=== PATIENT | female | born 1990 | race Two or more races ===

== ENCOUNTER 2016-11-19 15:01 | Inpatient (IN) | payer SELFPAY ==
[~2016-11-19] VITALS: Ht 160 cm; Wt 104.7 kg
--- NOTE | ~2016-11-19 | HP ---
PATIENT'S NAME: [facility] AGE: 26 Y [address] ROOM: [place] [address] [place] [facility] [place] DATE: 11/19/2016 History & Physical DISCHARGE DATE: FAMILY PHYSICIAN: PHYSICIAN, NO ATTENDING PHYSICIAN: GUILLERMO PADGETT V DATE OF SERVICE: CHIEF COMPLAINT: Abdominal pain. HISTORY OF PRESENT ILLNESS: The patient is a previously healthy 26-year-old female. She presented to the ER with approximately 3 days of constant mid-epigastric abdominal pain with radiation to her back. Apparently, this is not improved or escalated by any oral intake or activity. She denies any nausea, vomiting, chest pain, shortness of breath, diarrhea, or palpitations. In the ER, the patient had a right upper quadrant ultrasound and that demonstrated a thickened gallbladder wall with clear cholecystitis as well as evidence of a pericardial effusion. Subsequently, an echocardiogram has been done and this shows moderate-sized pericardial effusion, mild LVH, but no tamponade. The patient has been seen by Dr. Lea of General Surgery. He requested a hospitalist admission with antibiotic and preoperative optimization. REVIEW OF SYSTEMS: All systems have been reviewed and negative aside from the pertinent positives mentioned above. The patient was evaluated for some chest pain in [facility] several days ago and that was apparently unremarkable. PAST MEDICAL HISTORY: The patient denies. PAST SURGICAL HISTORY: The patient denies. FAMILY HISTORY: The patient denies. SOCIAL HISTORY: PATIENT'S NAME: [facility] AGE: 26 Y [address] ROOM: [place] [address] LOCATION: [facility] [place] DATE: 11/19/2016 History & Physical DISCHARGE DATE: FAMILY PHYSICIAN: PHYSICIAN, NO ATTENDING PHYSICIAN: GUILLERMO PADGETT V She does smoke approximately 1/2 a pack of cigarettes a day, but aside from that, she denies. PHYSICAL EXAMINATION: VITAL SIGNS: Blood pressure is 129/73, temperature 97, pulse is 94, respirations are 16, and saturations 97% on room air. GENERAL: Appears as a morbidly obese, young female, in no acute distress. NEUROLOGICAL: Nonfocal. EYES: Show pupils are equal and reactive to light. LYMPHATIC: Shows no cervical lymphadenopathy. ENDOCRINE: Shows no thyromegaly. LUNGS: Clear to auscultation in all campos. HEART: Shows regular rate and rhythm without appreciable murmurs, gallops, or rubs. ABDOMEN: Soft. Positive Walden sign. : Reveals no costovertebral angle tenderness. VASCULAR: Shows 2+ pedal pulses. MUSCULOSKELETAL: Unremarkable. PSYCHIATRIC: Reveals slightly anxious female with preserved cognition and affect. LABORATORY DATA: Studies performed so far are an echocardiogram and an ultrasound as per [facility]. A complete metabolic profile is significant for AST of 58, ALT of 96. Unremarkable urinalysis, unremarkable amylase lipase, and an unremarkable CBC. ASSESSMENT AND PLAN: This is a 26-year-old female, who will be admitted with: 1. Acute cholecystitis: The patient has been seen by General Surgery. We will put her on broad-spectrum antibiotics with Zosyn. Additional management as per General Surgery recommendations. 2. Pericardial effusion: The underlying etiology of this is unclear. I have discussed the case with Cardiology and the patient will be formally seen tomorrow. At this point, we will put her on fluids and check an EKG as well as TSH and look for other underlying possibilities for her pericardial effusion. 3. Morbid obesity noted. 4. Tobaccoism: I will provide her with tobacco cessation counseling. 5. Additional management will depend on clinical course. Time dedicated to this patient's encounter is 35 minutes. PATIENT'S NAME: RIRI ESCOTO [facility] AGE: 26 Y [address] ROOM: [address] [address] LOC[place]: [facility] [place] DATE: 11/19/2016 History & Physical DISCHARGE DATE: FAMILY PHYSICIAN: PHYSICIAN, NO ATTENDING PHYSICIAN: GUILLERMO PADGETT MD AVK/lalo /[id number] D: [id number] T: [id number] HISTORY & PHYSICAL
--- NOTE | ~2016-11-19 | ECHO ---
Transthoracic Echocardiography Report (TTE) Demographics Patient Name RIRI ESCOTO Date of Study 11/19/2016 Patient Number [id number] Visit Number [id number] Date of 1990 Room Number G3207 Accession Number [id number] Gender Female Age 26 year(s) Referring Floyd Stokes Synchronizer Itzel Randall RDCS, Physician HTOM RVT Physician Interpreting Shoaib Boston [employer]ishing Crew Member Physician MD Supervising Ordering Physician Shoaib Boston MD/MLP Nurse Stress Application Release Manager Conclusions Contractility Score Summary Normal Left Ventricular contractility was noted. Summary Normal LV/RV size and systolic function. The estimated left ventricular ejection fraction is 60-65%. Mild concentric left ventricular hypertrophy. Diastolic assessment reveals normal relaxation. The left atrium is mildly dilated by LA volume index measurement. Moderate size circumferential pericardial effusion. No significant valvular abnormalities. No obvious echocardiographic evidence of elevated intrapericardial pressuers. Procedure Type of Study TTE procedure:2D Echocardiogram, 2D Echo - Outreach. Procedure Date Date: 11/19/2016 Start: 05:20 PM Study Location: ER Technical Quality: Good visualization Indications:Evaluate for pericardial effusion. Additional Indications:pre op gallbladder Appropriate Use Criteria: 9 Patient Status: Routine Rhythm: Sinus tachycardia HR: 89 bpm M-Mode/2D Measurements LV Diastolic Dimension: 4.52 cm LV Systolic Dimension: 3.44 cm LV Septum Diastolic: 1.15 cm LV Septum Systolic: 3.04 cm LV PW Diastolic: 1.08 cm AO Root Dimension: 1.9 cm Cardiac Output: 4.1 l/min AV Cusp Separation: 2.5 cm RV Diastolic Dimension: 2.3 cm LA Dimension: 4.2 cm Post Pericard Effusion: 0.8 cm LA volume: 39 ml IVC Inspiration: 1.6 cm LVOT: 2.1 cm RV Base: 3.33 cm LVOT VTI: 13.3 cm RV Mid: 2.8 cm LV Stroke volume: 46.04 ml RV Length: 6.33 cm TAPSE: 3.09 cm TDI-S': 20 cm/s Doppler Measurements AV Peak Velocity: 1.28 m/s MV Peak E-Wave: 0.8 m/s AV Peak Gradient: 6.55 mmHg MV Peak A-Wave: 0.57 m/s AV Mean Gradient: 4 mmHg MV E/A Ratio: 1.4 LVOT Peak Velocity: 0.81 m/s MV P1/2t: 33 msec MV Deceleration Time: 29 msec TR Gradient:13.4 mmHg PV Peak Velocity: 0.87 m/s Estimated RAP:8 mmHg PV Peak Gradient: 3.05 mmHg Estimated RVSP: 21 mmHg Estimated PASP: 21.4 mmHg E' Lateral Velocity: 0.07 m/s A' Lateral Velocity: 0.14 m/s MV E/E' Ratio: 12 Findings Left Ventricle The estimated left ventricular ejection fraction is 60-65%. Mild concentric left ventricular hypertrophy. Diastolic assessment reveals normal relaxation. Right Ventricle Grossly normal right ventricle structure and function. Left Atrium The left atrium is mildly dilated by LA volume index measurement. Right Atrium Grossly normal right atrial size. Dilated IVC with poor inspiratory collapse consistent with elevated RA pressure.2.34 Mitral Valve Trivial mitral regurgitation by color Doppler. Aortic Valve Grossly normal aortic valve structure and function. Tricuspid Valve The tricuspid valve is not well visualized. Trivial tricuspid regurgitation by color Doppler. Pulmonic Valve Trivial pulmonic valve regurgitation by color Doppler. Pericardial Effusion Moderate size circumferential pericardial effusion. No obvious echocardiographic evidence of elevated intrapericardial pressuers. Miscellaneous Visualized portions of the aortic root and ascending aorta appear normal in size. Pleural Effusion No evidence of pleural effusion. Contractility Score LV regional wall motion:(0-Non visualized 1-Normal 2-Hypokinesis 3-Akinesis 4-Dyskinesis 5-Aneurysm) Signature dtt: JOSE MENEZES dtd: 11/19/16 9955 Physician Self Edit
--- NOTE | ~2016-11-19 | CON ---
[facility] 26 [facility] [address] ROOM: [place] [address] [place] [facility] [place] DATE: 11/19/2016 Consultation DISCHARGE DATE: FAMILY PHYSICIAN: PHYSICIAN, NO ATTENDING PHYSICIAN: GUILLERMO PADGETT V DATE OF CONSULTATION: 11/20/2016 REFERRING PHYSICIAN: LUDY MENEZES MD REASON FOR CARDIOLOGY CONSULT: Preoperative cardiac evaluation. HISTORY OF PRESENT ILLNESS: This is a 26-year-old female, admitted with acute cholecystitis from the emergency department. During her abdominal ultrasound, she was also found incidentally to have a pericardial effusion and this consult was requested. The patient complains of right upper quadrant pain with radiation and sharpness into her back. She states the pain is worse with a deep breath. She also has complaints of nausea and constipation as well as diaphoresis. She states she had similar pain about 3 weeks ago and presented to the [facility] where they stated a cardiac workup was "normal." She has no noted family history of heart disease. Her health history includes 3 normal vaginal births without complication and no other health history noted. At the time of this consult, she is resting comfortably in bed. She does continue to have abdominal pain and tenderness with palpation, especially to the right upper quadrant. She also states her pain increases with deep breath. PAST MEDICAL HISTORY: As stated in the HPI. FAMILY HISTORY: There is notation of cancer as well as diabetes in her aunts and uncles. SOCIAL HISTORY: The patient is a current daily cigarette smoker. She smokes a half a pack per day and has done so for the last 7 years. She denies alcohol use. She does admit to marijuana use previously and states she has not used for over 6 months. CURRENT MEDICATIONS: 1. Protonix 40 mg IV daily. 2. Zosyn 3.375 g IV every 8 hours. 3. Florastor 250 mg p.o. twice daily. 4. NicoDerm 21 mg transdermally daily. [facility] 26 Y [address] ROOM: [address] [address] [place]: [facility] [place]MIT DATE: 11/19/2016 Consultation DISCHARGE DATE: FAMILY PHYSICIAN: PHYSICIAN, NO ATTENDING PHYSICIAN: GUILLERMO PADGETT V MEDICATION ALLERGIES: No known medication allergies. REVIEW OF SYSTEMS: Pertinent positive review of systems listed in the HPI. All other review of systems evaluated and negative. DIAGNOSTICS: CMS evaluation shows sodium of 140, potassium 3.7, BUN of 19, creatinine 0.8, and glucose of 96. She has a TSH of 3.83. Echocardiogram shows an estimated left ventricular ejection fraction of 60 to 65%. She had a moderate-sized circumferential pericardial effusion. There are no significant valvular abnormalities and no obvious echocardiographic evidence of elevated intrapericardial pressures. PHYSICAL EXAMINATION: VITAL SIGNS: Temperature 98.1, pulse 95, respirations 16, blood pressure 115/71, and O2 saturation 98% on room air. The patient weighs 97.4 kg. SKIN: Normal for race and warm and dry. HEENT: Eyes: Sclerae clear. No xanthelasmas. ENT: Oral mucosa is pink and moist. No jugular venous distention or carotid bruits. CHEST: Respirations are even and unlabored. LUNGS: Clear to auscultation. HEART: Regular rate and rhythm. Normal S1, S2. No murmurs, rubs, or gallops. ABDOMEN: Soft, nontender. MUSCULOSKELETAL: Gait is normal. EXTREMITIES: Peripheral pulses palpable. No clubbing, cyanosis, or edema. PSYCH: Alert and oriented. Mood and affect are appropriate. IMPRESSION AND PLAN: Per Dr. Ludy Menezes: 1. Preoperative cardiac evaluation. 2. Moderate pericardial effusion. Some echo e/o increased intrapericardial pressures. However, clinically she is not in tamponade. BP and HR is stable, no pulsus paradoxus. 3. Acute cholecystitis. 4. Atypical chest pain which is sharp and worsened with deep breath. Overall, she has no signs and symptoms suggestive of tamponade. Questionably secondary to recent respiratory infection, possibly viral. We will repeat an echocardiogram in 1 month to re-evaluate. Once again, she has no complaints of signs and symptoms suggestive of tamponade including having a stable heart rate and blood pressure. She is in need of urgent surgery for her acute cholecystitis, and the patient is at low risk for perioperative cardiac events. There is no indication for pericardiocentesis at this time. She will PATIENT'S NAME: RIRI ESCOTO [facility] AGE: 26 Y [address] ROOM: [address] [place] [id number] LOC[place]: [facility] [place]MIT DATE: 11/19/2016 Consultation DISCHARGE DATE: FAMILY PHYSICIAN: PHYSICIAN, FELICIANO ATTENDING PHYSICIAN: GUILLERMO PADGETT V need monitoring of her hemodynamic status during surgery and attempts to avoid hypotension or arrhythmias. We will continue to monitor, evaluate, and treat as appropriate. Thank you for this consult. Thank you for allowing [facility] to interact in the care of this patient. VAL BARROS APRN FOR MD SUPA KUHN/lalo /[id number] d: 11/20/16 2233 t: 11/24/16 1407, CONSULTATION REPORT
--- NOTE | ~2016-11-19 | ECHO ---
Transthoracic Echocardiography Report (TTE) Demographics Patient Name RIRI ESCOTO Date of Study 11/23/2016 Patient Number [id number] Visit Number [id number] Date of 1990 Room Number G3207 [facility] [id number] Gender Female Number Age 26 year(s) Referring Joni Stokes DO Film And Video Editor Ar Mckeon Physician Yaneli Banks MD Physician Interpreting Jessee Galicia Ticket Writer Physician Shoaib Boston MD Supervising Ordering Joni Stokes DO, MD/MLP Physician Nurse Stress Sorting Grapple Operator Conclusions Contractility Score Summary Normal Left Ventricular contractility was noted. Summary The estimated left ventricular ejection fraction is 55%. The left atrium is mildly dilated by LA volume index measurement. Moderate global pericardial effusion. There is echocardiographic suspicion of increased intrapericardial pressure based on late diastolic RA collapse and respirophasic variation in MV inflow pattern. No significant change in pericardial effusion compared to prior echocardiogram. BP and HR stable during echo interrogation. Clinical correlation recommended. Procedure Type of Study TTE procedure:2D Echocardiogram, M-Mode, Doppler , Color Doppler. Procedure Date Date: 11/23/2016 Start: 07:09 AM Study Location: Inpatient Portable Technical Quality: Excellent Indications:Pericardial effusion and Cardiac Tamponade. Appropriate Use Criteria: 9 Patient Status: Routine HR: 89 bpm M-Mode/2D Measurements LV Diastolic Dimension: 4.59 cm LV Systolic Dimension: 3.04 cm LV Septum Diastolic: 1.09 cm LV PW Diastolic: 0.99 cm AO Root Dimension: 2 cm Cardiac Output: 5.76 l/min LA Dimension: 3.7 cm EF Estimated: 55 % LVOT: 2.1 cm LVOT VTI: 18.7 cm RV Base: 2.26 cm LV Stroke volume: 64.74 ml RV Length: 6.62 cm TAPSE: 2.02 cm TDI-S': 15.2 cm/s Doppler Measurements AV Peak Velocity: 1.03 m/s MV Peak E-Wave: 0.92 m/s AV Peak Gradient: 4.24 mmHg AV Mean Gradient: 3 mmHg MV P1/2t: 52 msec LVOT Peak Velocity: 0.99 m/s TR Velocity:0.9 m/s PV Peak Velocity: 0.81 m/s TR Gradient:3.21 mmHg PV Peak Gradient: 2.6 mmHg Estimated RAP:8 mmHg Estimated PASP: 11.21 mmHg Estimated RVSP: 11 mmHg A' Septal Velocity: 0.12 m/s E' Septal Velocity: 0.1 m/s A' Lateral Velocity: 0.11 m/s E' Lateral Velocity: 0.09 m/s Findings Left Ventricle Normal left ventricle size and function. Right Ventricle Normal right ventricle structure and function. Left Atrium The left atrium is mildly dilated by LA volume index measurement. Right Atrium Normal right atrial size. Mitral Valve Trivial mitral regurgitation by color Doppler. Aortic Valve Normal aortic valve structure and function. Tricuspid Valve Trivial tricuspid regurgitation by color Doppler. Pulmonic Valve Normal pulmonic valve structure and function. Pericardial Effusion Large global pericardial effusion. There is echocardiographic suspicion of cardiac tamponade. Epicardial fat pad noted. Miscellaneous Visualized portions of the aortic root and ascending aorta appear normal in size. Suboptimal subcostal window to evaluate the IVC. Pleural Effusion No evidence of pleural effusion. Contractility Score LV regional wall motion:(0-Non visualized 1-Normal 2-Hypokinesis 3-Akinesis 4-Dyskinesis 5-Aneurysm) Signature dtt: JOSE MENEZES dtd: 11/23/16 0709 Physician Self Edit
--- NOTE | ~2016-11-19 | OR ---
PATIENT'S NAME: RIRI ESCOTO [facility] AGE: 26 Y [address] ROOM: [address] [address] LOCATION: [facility] [place] ADMIT DATE: 11/19/2016 OR/Procedure Report DISCHARGE DATE: FAMILY PHYSICIAN: PHYSICIAN, NO ATTENDING PHYSICIAN: GUILLERMO PADGETT V SURGEON: Moe Christian MD SEALING MACHINE OPERATOR: Link Weber PA-C. DATE OF PROCEDURE: 11/19/2016 PREOPERATIVE DIAGNOSIS: Acute cholecystitis. POSTOPERATIVE DIAGNOSIS: Acute cholecystitis. PROCEDURE: Laparoscopic cholecystectomy. FINDINGS: There was ascites in the abdomen. The gallbladder was edematous, consistent with cholecystitis. ESTIMATED BLOOD LOSS: 20 mL. COMPLICATIONS: None. INDICATIONS: The patient is a 26-year-old female who presented with abdominal pain right upper quadrant. She had cholelithiasis. Her signs and symptoms were consistent with cholecystitis. We discussed cholecystectomy with the patient the risks, benefits, and alternatives, and she elected to proceed. DESCRIPTION OF PROCEDURE: The patient is taken to the operating room, she was placed supine, she was given IV sedation, subsequently intubated. Her abdomen was prepped with ChloraPrep and sterilely draped. Local anesthetic was infiltrated just superior to the umbilicus. A transverse incision was created. The abdomen was elevated. Veress needle was inserted. Pneumoperitoneum was induced. Following this, 3 more trocars were then positioned, an 11-mm epigastric and two 5-mm right subcostal ports. Skin overlying peritoneal was first anesthetized prior to making these incisions. All three of these trocars were inserted under direct visualization. There was noted to be ascitic fluid in the abdomen, [id number], and the gallbladder was noted to be edematous. It was grasped and elevated over the dome of the liver. The infundibulum was grasped, retracted inferiorly and laterally to expose the Calot's triangle. The cystic duct and artery were dissected around circumferentially. A critical window was able be obtained. Both these structures were then doubly clipped and divided. The gallbladder was then removed from liver bed using electrocautery. It is placed in EndoCatch bag and brought out through the epigastric port site. The liver bed was then inspected. It appeared hemostatic. Clips appeared to be in good PATIENT'S NAME: RIRI ESCOTO [facility] AGE: 26 Y [address] ROOM: [place] [address] LOCATION: [facility] [place] ADMIT DATE: 11/19/2016 OR/Procedure Report DISCHARGE DATE: FAMILY PHYSICIAN: PHYSICIAN, NO ATTENDING PHYSICIAN: GUILLERMO PADGETT V position on both the cystic duct and artery. The area was irrigated. Fluid was removed. The pneumoperitoneum was released. The trocars were removed. The trocar sites appeared hemostatic. The fascia at the epigastric port site was approximated with 0 Vicryl suture followed by skin closure of all 4 port sites with 4-0 Monocryl suture. Steri-Strips and sterile dressings were placed. The patient was extubated and sent to recovery in good condition. MOE MD PRINCE SHAIKH/lalo /[id number] d: 11/20/16 2327 t: 12/02/16 1454, OPERATIVE SUMMARY
--- NOTE | ~2016-11-19 | CON ---
PATIENT'S NAME: [facility] AGE: 26 Y [address] ROOM: [place] [address] LOCATION: [facility] [place] ADMIT DATE: 11/19/2016 Consultation DISCHARGE DATE: FAMILY PHYSICIAN: PHYSICIAN, NO ATTENDING PHYSICIAN: GUILLERMO PADGETT V REFERRING PHYSICIAN: JOSE MENEZES MD SURGICAL CONSULTATION HISTORY OF PRESENT ILLNESS: This is a 26-year-old female who has had 3-day history of abdominal discomfort. She has had this in the past. No emesis. Seems to be worse with fatty foods. No history of peptic ulcer disease, pancreatitis, hepatitis or jaundice. She has noticed it is getting worse. No fevers or chills. She had in the emergency room, an ultrasound which showed cholelithiasis and a thickened wall. No fluid around her gallbladder. Her biliary tree looked satisfactory. She does have a moderate-sized pericardial fluid collection which is being evaluated by an echo. Her white count is 8000, hematocrit is 34.7. Her amylase and lipase are normal. Her liver function tests and electrolytes are pending at this time. Urinalysis was reviewed. MEDICATIONS: None. ALLERGIES: SEASONAL. PAST MEDICAL PROBLEMS: Seasonal allergies. OPERATIONS: None. REVIEW OF SYSTEMS: Remainder of review of systems; surgical, noncontributory. SOCIAL HISTORY: She does not smoke or drink. PHYSICAL EXAMINATION: VITAL SIGNS: Afebrile. Vital signs stable. HEENT: Nonicteric. GENERAL: She looks reasonably comfortable. CHEST: Clear. ABDOMEN: Soft. She does have tenderness in the right upper quadrant. Positive Walden sign. No peritoneal signs. No mass or organomegaly. No PATIENT'S NAME: [facility] AGE: 26 Y [address] ROOM: [place] [id number] LOCATION: [facility] [place] ADMIT DATE: 11/19/2016 Consultation DISCHARGE DATE: FAMILY PHYSICIAN: PHYSICIAN, NO ATTENDING PHYSICIAN: GUILLERMO PADGETT V hernias. EXTREMITIES: Perfused. IMPRESSION: Cholecystitis and cholelithiasis. PLAN: She is admitted by the hospitalist. We will treat her with IV antibiotics and p.o. intravenous hydration. Evaluation by echo for pericardial effusion, and evaluate her liver function tests. She will need a cholecystectomy. MD Carly REESE /[id number] d: 11/19/16 2312 t: 11/20/16 0602, CONSULTATION REPORT
--- NOTE | ~2016-11-19 | DS ---
PATIENT'S NAME: RIRI MCKEE [facility] AGE: 26 Y [address] ROOM: [place] [address] LOCATION: [facility] [place] ADMIT DATE: 11/19/2016 Discharge Summary DISCHARGE DATE: 11/23/2016 FAMILY PHYSICIAN: PHYSICIAN, NO ATTENDING PHYSICIAN: Richi Groves V PRINCIPAL DISCHARGE DIAGNOSIS: Pericardial effusion, moderate. SECONDARY DIAGNOSES: 1. Tamponade by echo, but not physical exam, on 11/20/2016. 2. Acute cholecystitis. 3. Cholelithiasis. 4. Cholesterolosis. 5. Bilateral pleural effusions, right greater than left. 6. Ascites, small. 7. Transaminitis AST of 47, ALT of 115. 8. Mild proteinuria. 9. Iron-deficiency anemia. CONSULTATIONS: 1. General Surgery, Dr. Christian. 2. Cardiology, Dr. Ludy Cramer. 3. Cardiothoracic Surgery, Dr. Jaison Quinones. PROCEDURES: 1. Laparoscopic cholecystectomy on November 20, 2016. 2. Echocardiogram, this was done on number of occasions, but I will give you the results from the study from 11/23/2016. There is normal left ventricular contractility. The ejection fraction is 55%. Left atrium is mildly dilated. There is moderate global pericardial effusion with echocardiographic suspicion of increased intrapericardial pressure only diastolic right atrial collapse and respirophasic variation in mitral valve inflow pattern. There is no significant change in pericardial effusion compared to the prior echo, which was done on the . BRIEF HISTORY: Ms. Mckee is a 26-year-old female who reports a 3- day history of right upper quadrant pain with radiation to the back also associated with some generalized abdominal pain. On evaluation in the emergency room, she had right upper quadrant ultrasound that showed thickened gallbladder wall and evidence of cholecystitis; and at that time, it was also noted to have a pericardial effusion. An echocardiogram was obtained and showed a moderate-sized pericardial effusion with mild left ventricular hypertrophy, but no tamponade. On further questioning about these symptoms, the patient reported she had had a mild and PATIENT'S NAME: RIRI MCKEE [facility] AGE: 26 Y [address] ROOM: [place] [address] LOCATION: [facility] [place] ADMIT DATE: 11/19/2016 Discharge Summary DISCHARGE DATE: 11/23/2016 FAMILY PHYSICIAN: PHYSICIAN, NO ATTENDING PHYSICIAN: Richi Groves V inconsequential cough in September; however, a week or so later, she developed this exertional dyspnea and this increased over couple of weeks and the week prior to admission she experienced increasing dyspnea, some dizziness, some fevers, chills, and shaking. The chest pain was constant over this time. Chest pain has varied from around 5 to 8, but she has had 2 episodes of extremely severe chest pain one on the evening after surgery on the and one the following day. Both these times, she required IV narcotics and IV Ativan to assist with the pain. Initially, on the evening of the , bedside limited echo did show tamponade features. Please see the echocardiogram interpreted by Dr. Paz for this. Initial evaluation for etiology of pericardial effusion with symptoms of pericarditis was unrevealing other than possibly related to viral infection in September, an YAN was negative, white count was elevated briefly after surgery, and her white count is now normal with white blood cells 6.4, hemoglobin 9.5, hematocrit 31.1, platelets 371, absolute neutrophil count is 4, neutrophil 61%, lymphs 29%, and monos 8%. Anticardiolipin IgG and IgM were normal. T3 within normal limits. Beta-2 glycoprotein IgA is normal. Lupus anticoagulant appears to be negative with a mixing ratio of 1.0 and 1.2 is the cutoff. Lipid profile showed a cholesterol of 103, triglycerides 88, HDL 30, VLDL 17, and LDL 56. On evaluation of her anemia, vitamin B12 was 663, folate 9.2, ferritin 33.7, all within normal limits. Her iron however is 24 with a lower limit of normal being 27 and iron saturation 6% with the lower limit of normal being 20% to 55%. Her total iron binding capacity is 371, normal. Other imaging to evaluate her pericardial effusion include CT of the abdomen and pelvis did show a circumferential pericardial effusion, which they characterized as large, in addition, she had some atelectasis with slight pleural effusions; and she had mild ascites. On discussion with the radiologist, none of these appeared large enough to be tapped for diagnostic purposes. The patient has had no further episodes of severe pain and the pain is mild today. She has mild dyspnea on exertion, which has improved, and she agree she is ready for discharge. I have discussed this with Dr. Nichols and Dr. Quinones who both agree tapping the pericardial effusion is not indicated at this time. INSTRUCTIONS AT DISCHARGE: 1. Diet: She was encouraged to increase her vegetable and fruit intake and have a lean protein with each meal. 2. Activity: Walk 15 minutes every morning and every evening until she is feeling better. 3. Follow up appointments with Dr. Nichols for a 2D echocardiogram in 2 weeks on December 08 at 11:30 a.m. Follow up with Dr. Christian in 2 weeks. She is to establish care with a new PCP and we have setup an appointment for her PATIENT'S NAME: RIRI MCKEE [facility] AGE: 26 Y [address] ROOM: [id number] [place], [place] [address] LOCATION: [facility] [place] ADMIT DATE: 11/19/2016 Discharge Summary DISCHARGE DATE: 11/23/2016 FAMILY PHYSICIAN: PHYSICIAN, NO ATTENDING PHYSICIAN: Richi Groves V with Dr. Shane in [place] on November 28, at 10:20 a.m. MEDICATIONS AT THE TIME OF DISCHARGE: 1. Aspirin 81 mg p.o. t.i.d. 2. Colchicine 0.6 mg p.o. b.i.d. 3. NicoDerm patch 14 mg transdermal for 7 days. 4. Oxycodone 5 mg 1 p.o. every 6 hours p.r.n. pain. 5. Ferrous sulfate 325 mg p.o. daily with food. 6. I have not given her the script for hydrocodone because it had Tylenol in it given her elevated liver enzymes. CONDITION AT DISCHARGE: Good. CRISTIANE MORGAN MD LM/lalo /[id number] CC: MD Jaison Rivera DO Brady J O'Hare, MD Anuradha Tunuguntla, MD d: 11/24/16 0355 t: 12/05/16 0855, DISCHARGE SUMMARY
--- NOTE | ~2016-11-19 | PN ---
PATIENT'S NAME: RIRI ESCOTO [facility] AGE: 26 Y [address] ROOM: [address] [address] LOCATION: [facility] [place] ADMIT DATE: 11/19/2016 Progress Notes DISCHARGE DATE: FAMILY PHYSICIAN: PHYSICIAN, NO ATTENDING PHYSICIAN: GUILLERMO PADGETT V DATE OF SERVICE: 11/20/2016 ADDENDUM: This patient will need her pericardial effusion evaluated by Cardiology, although it certainly may be sympathetic. This needs to be evaluated prior to laparoscopic cholecystectomy. MD JOSE REESE/lalo /[id number] d: 11/20/16620 t: 11/24/16 1816, PROGRESS NOTES
--- NOTE | ~2016-11-19 | ER ---
PATIENT'S NAME: TIGIST [facility] AGE: 26 Y [address] ROOM: [place] [address] LOCATION: [facility] [place] ADMIT DATE: 11/19/2016 ER/Outpatient Report DISCHARGE DATE: FAMILY PHYSICIAN: PHYSICIAN, NO ATTENDING PHYSICIAN: GUILLERMO PADGETT V Time of Arrival: 1501 hours. Time of Evaluation: 1515 hours. CHIEF COMPLAINT: Abdominal pain. HISTORY OF PRESENT ILLNESS: This is a 26-year-old female, who presents to the ER, who states she is having some abdominal pain that started 3 days ago. She states initially the pain would come and go, but then today it got worse after she drank some coffee and ate a bagel. She states her pain is located in her midepigastric region and is sharp in nature. She states that it waxes and wanes in intensity. She states it did make her vomit once today, she has had no diarrhea and no constipation. She does not believe she has been running any fevers, but has felt chilled. She states this pain does radiate into her back. She states she has a little bit of urinary frequency as well. Her last bowel movement was normal and was yesterday. The patient states she has never had pain like this before this last 3 days. ALLERGIES: NO KNOWN ALLERGIES. MEDICATIONS: None. PAST MEDICAL HISTORY: Negative. PAST SURGERIES: None. SOCIAL HISTORY: Smokes 1 pack a day for the last 6 years. Denies any drug or alcohol use. REVIEW OF SYSTEMS: A 10-point review of systems was completed and was negative with the exception of those discussed in the HPI. PHYSICAL EXAMINATION: PATIENT'S NAME: TIGIST [facility] AGE: 26 Y [address] ROOM: [address] [address] LOCATION: [facility] [place] ADMIT DATE: 11/19/2016 ER/Outpatient Report DISCHARGE DATE: FAMILY PHYSICIAN: PHYSICIAN, NO ATTENDING PHYSICIAN: GUILLERMO PADGETT V VITAL SIGNS: Height 5 feet and 3 inches stated, weight 98.9 kg taken, blood pressure is 129/73, pulse 94, respirations 16, temperature 97.7 degrees tympanically, and saturations 97% on room air. [place] Coma Score is 15. GENERAL: Alert, calm, well-developed female, in no obvious distress, but she does appear not to feel well. HEENT: She does display moist mucous membranes. Eyes: Pupils are equal and reactive to light. NECK: Supple. No lymphadenopathy. LUNGS: Clear to auscultation bilaterally. No wheezes or crackles. Normal respiratory effort. HEART: Regular rate and rhythm. No lifts, thrills, or murmurs. ABDOMEN: Soft. She does have tenderness in her right upper quadrant and midepigastric region with palpation. She has good bowel sounds throughout. No masses were palpated. EXTREMITIES: No clubbing or cyanosis. She does have full range of motion of all limbs. SKIN: Warm, dry, and intact. NEURO: Cranial nerves II through II grossly intact. Gait is steady without assistance. LABORATORY DATA: CBC: White count is 8.0, hemoglobin is 10.8, platelets 388, and ANC is 5.1. CMS: Glucose is 102, albumin 3.3, A/G ratio 0.8, AST is 68, ALT is 96, estimated GFR is greater than 60, sodium is 142, potassium 4.2, amylase 33, lipase 100, proBNP is less than 30. Urinalysis shows leukocytes 500, nitrites negative. UA micro: White blood cells 10 to 20, red blood cells 2 to 5, epithelial 2 to 5, bacteria moderate, mucus 4+. We did do a right upper quadrant ultrasound, which does show severe thickening of the gallbladder wall consistent with an acute cholecystitis. She also has an incidental finding of moderate-sized pericardial fluid of uncertain etiology. We did order an echo of the heart at this time due to her pericardial effusion, does show that she has moderate-sized circumferential pericardial effusion. The left atrium is mildly dilated. No evidence about of elevated intrapericardial pressures. This was reviewed by Dr. Boston. IMPRESSION: 1. Acute cholecystitis. 2. Incidental finding of pericardial effusion. ASSESSMENT AND PLAN: The patient does not have a primary care physician here in [place]. Therefore, I called the Hospitalist Service and Dr. Padgett will be admitting the patient for further care. I also notified Dr. Lea, the surgeon this evening and he will also follow along with the patient. We did start an IV here in the emergency room. We did give her some IV fluids along with PATIENT'S NAME: RIRI ESCOTO [facility] AGE: 26 Y [address] ROOM: [address] [address] LOCATION: [facility] [place] ADMIT DATE: 11/19/2016 ER/Outpatient Report DISCHARGE DATE: FAMILY PHYSICIAN: PHYSICIAN, FELICIANO ATTENDING PHYSICIAN: GUILLERMO PADGETT V morphine for her pain. We initially gave her a GI cocktail, which did improve her pain, but her pain returned after that wore off. We start the Zosyn 4.5 grams IV down here in the emergency room as well. We will be turning the care over to the Hospitalist Service as well as the surgeons at this time. The patient understands and agrees with care. WILLIAN ADAM PA-C FOR MD JAYDON LOGAN/lalo /[id number] d: 11/20/16 0153 t: 11/29/16 0114, OUTPATIENT REPORT
--- NOTE | ~2016-11-19 | ECHO ---
Transthoracic Echocardiography Report (TTE) Demographics Patient Name RIRI ESCOTO Date of Study 11/20/2016 S Patient Number [id number] Visit Number [id number] Date of 1990 Room Number G3207 [facility] [id number] Gender Female Number Age 26 year(s) Referring Rental Bo[employer] Caretaker Alexandro PRINCE RDCS Physician Pam Physician Interpreting Jackson Duong MD Industrial Safety Engineer Physician Supervising Ordering Jackson Duong MD, MD/JING Physician Nurse Stress Sole Stapler Welt Conclusions Summary Limited echo for pericardial effusion. The estimated left ventricular ejection fraction is 60-65%. Moderate global pericardial effusion. There is echocardiographic evidence of cardiac tamponade. The pericardial effusion is larger compared to study dated 11/19/2016. Procedure Type of Study TTE procedure:Echo Limited w/o Contrast. Procedure Date Date: 11/20/2016 Start: 12:00 AM Study Location: Inpatient Portable Technical Quality: Adequate visualization Indications:Chest pain. Additional Indications:f/o cardiac tamponade Appropriate Use Criteria: 9 Patient Status: STAT HR: 83 bpm Findings Pericardial Effusion Moderate global pericardial effusion. There is echocardiographic evidence of cardiac tamponade. Signature dtt: Rhoda Paz dtd: 11/20/16 0000 Physician Self Edit
[2016-11-19 15:24] LABS: BILIRUBIN URINE NEGATIVE (NEGATIVE); BLOOD URINE 10 /UL (NEGATIVE); COLOR URINE YELLOW (YELLOW); GLUCOSE URINE NEGATIVE (NEGATIVE); KETONE URINE NEGATIVE (NEGATIVE); LEUKOCYTES URINE 500 /UL (NEGATIVE); NITRITE URINE NEGATIVE (NEGATIVE); PROTEIN URINE NEGATIVE (NEGATIVE); SPEC GRAVITY URINE 1.025 (1.003-1.035); TURBIDITY URINE CLEAR (CLEAR); UROBILINOGEN URINE 1 mg/dL (NORMAL)
[2016-11-19 15:37] LABS: BACTERIA URINE MODERATE (NEGATIVE); MUCUS URINE 4+ (NEGATIVE)
[2016-11-19 15:50] LABS: BASOPHIL # 0.1 K/uL (0.0-0.2); BASOPHIL % 0.6 %; EOSINOPHIL # 0.1 K/uL (0.0-0.5); EOSINOPHIL % 1.6 %; HEMATOCRIT 34.7 % (33.0-46.0); HEMOGLOBIN 10.8 g/dL (11.0-15.0); IMMATURE GRANULOCYTE % 0.4 %; LYMPHOCYTE % 25.3 %; MCH 25.7 pg (27.0-34.0); MCHC 31.1 gm/dL (32.0-36.5); MCV 82.4 fl (83.0-98.0); MONOCYTE # 0.6 K/uL (0.0-1.0); MONOCYTE % 7.8 %; MPV 9.2 fl (9.4-12.4); NEUTROPHIL # (ANC) 5.1 K/uL (1.8-7.8); NEUTROPHIL % 64.3 %; NRBC % 0 /100WBC (0-0.00); PLATELET COUNT 388 K/uL (150-450); RBC 4.21 M/uL (3.50-5.00); RDW-CV 13.9 % (11.9-14.6)
[2016-11-19 17:47] LABS: ALBUMIN 3.3 gm/dL (3.5-5.0); ALK PHOS 106 IU/L (33-138); ALT 96 IU/L (12-78); ANION GAP 14.2 (10.0-19.0); AST 68 IU/L (10-40); BLOOD UREA NITROGEN 18 mg/dL (6-24); CALCIUM 8.7 mg/dL (8.5-10.5); CHLORIDE 108 mMol/L (96-110); CO2 24 mMol/L (22-32); CREATININE 0.7 mg/dL (0.5-1.1); ESTIMATED GFR (MDRD EQUATION) > 60; POTASSIUM 4.2 mMol/L (3.7-5.1); SODIUM 142 mMol/L (135-145); TOTAL BILIRUBIN 0.3 mg/dL (0.0-1.5); TOTAL PROTEIN 7.2 g/dL (6.0-8.4)
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
--- NOTE | 2016-11-20 03:52 | NUR ---
Significant Event:pt is a/o x3. iv to l ac is sluggish but does get blood return, started second iv to r hand with good blood return and has ns@ 100ml/hr. pt also getting zosyn q 8 hrs. pt recieved morphine 4 mg x2 last @ 0325 for right upper quad pain that radiates to back. pt has been npo since midnight, no permits at this time. vss but can run on the low side for sbp. tele on w/ no calls. Follow up:possible procedure today.
[2016-11-20 05:28] LABS: BASOPHIL # 0.1 K/uL (0.0-0.2); BASOPHIL % 0.7 %; EOSINOPHIL # 0.2 K/uL (0.0-0.5); EOSINOPHIL % 2.3 %; HEMATOCRIT 32.8 % (33.0-46.0); IMMATURE GRANULOCYTE % 0.4 %; LYMPHOCYTE # 1.9 K/uL (0.8-4.0); LYMPHOCYTE % 24.5 %; MCH 25.4 pg (27.0-34.0); MCHC 30.5 gm/dL (32.0-36.5); MCV 83.5 fl (83.0-98.0); MONOCYTE # 0.6 K/uL (0.0-1.0); MONOCYTE % 7.4 %; MPV 9.6 fl (9.4-12.4); NEUTROPHIL # (ANC) 4.9 K/uL (1.8-7.8); NEUTROPHIL % 64.7 %; NRBC % 0 /100WBC (0-0.00); PLATELET COUNT 353 K/uL (150-450); RBC 3.93 M/uL (3.50-5.00); RDW-CV 14.1 % (11.9-14.6); WBC 7.6 K/uL (4.0-11.0)
[2016-11-20 05:42] LABS: PROTIME 10.8 SECONDS (9.6-11.1)
[2016-11-20 05:55] LABS: ALK PHOS 116 IU/L (33-138); ALT 94 IU/L (12-78); ANION GAP 10.7 (10.0-19.0); AST 66 IU/L (10-40); BLOOD UREA NITROGEN 19 mg/dL (6-24); CALCIUM 8.1 mg/dL (8.5-10.5); CHLORIDE 107 mMol/L (96-110); CO2 26 mMol/L (22-32); CREATININE 0.8 mg/dL (0.5-1.1); ESTIMATED GFR (MDRD EQUATION) > 60; POTASSIUM 3.7 mMol/L (3.7-5.1); SODIUM 140 mMol/L (135-145); TOTAL BILIRUBIN 0.3 mg/dL (0.0-1.5); TOTAL PROTEIN 6.8 g/dL (6.0-8.4)
--- NOTE | 2016-11-20 10:38 | NUR ---
Met with patient at bedside at 0930. Introduced myself and explained my role with the CM department. Patient lives alone and is independent with her ADL's. She will be staying with her parents for a short period of time following discharge to have some assistance with her care if needed. She denies any discharge concerns at this time. Will continue to follow and offer supports as needed.
--- NOTE | 2016-11-20 18:39 | NUR ---
Significant Event: Pt c/o intermittent right abd pain, some relief with IV MS. NPO for gallbladder removal. Cardiology consulted, ok'd for surgery. Hypotensive at time low 90's systolic, asymptomatic. Right hand IV fell out in the shower. Still have left antecubital IV. Up with standby assist. Left for OR at 1500, not back at shift change. Follow up:
[2016-11-20 20:09] LABS: BASOPHIL % 0.2 %; EOSINOPHIL % 0.1 %; HEMATOCRIT 32.2 % (33.0-46.0); HEMOGLOBIN 10.2 g/dL (11.0-15.0); IMMATURE GRANULOCYTE # 0.1 K/uL (0.0-0.3); IMMATURE GRANULOCYTE % 0.5 %; LYMPHOCYTE # 0.8 K/uL (0.8-4.0); LYMPHOCYTE % 4.2 %; MCH 25.9 pg (27.0-34.0); MCHC 31.7 gm/dL (32.0-36.5); MCV 81.7 fl (83.0-98.0); MONOCYTE # 0.2 K/uL (0.0-1.0); MONOCYTE % 0.9 %; MPV 9.9 fl (9.4-12.4); NEUTROPHIL # (ANC) 16.7 K/uL (1.8-7.8); NEUTROPHIL % 94.1 %; NRBC % 0 /100WBC (0-0.00); PLATELET COUNT 360 K/uL (150-450); RBC 3.94 M/uL (3.50-5.00); RDW-CV 14.1 % (11.9-14.6); WBC 17.7 K/uL (4.0-11.0)
[2016-11-20 20:29] LABS: ANION GAP 15.4 (10.0-19.0); BLOOD UREA NITROGEN 19 mg/dL (6-24); CALCIUM 7.6 mg/dL (8.5-10.5); CHLORIDE 111 mMol/L (96-110); CO2 19 mMol/L (22-32); CPK 38 IU/L (21-215); CREATININE 0.8 mg/dL (0.5-1.1); ESTIMATED GFR (MDRD EQUATION) > 60; POTASSIUM 4.4 mMol/L (3.7-5.1); SODIUM 141 mMol/L (135-145)
--- NOTE | 2016-11-21 03:36 | NUR ---
Significant Event: Patient alert and orineted X4. Up with stand by assist. Rapid response called at 1942 for acute, sharp chest pain and pressure. EKG was normal. Has history of pericardial effusion, and echo showed possibly some more fluid. History of anxiety and depression. Doing better now. ON room air. Afebrile. On oral norco. IV running LR to R) forearm at 100ml, and L) AC running intermittent zosyn. MOther at bedside. Tolerating clear liquid diet. Can probably have fulls-soft for breakfast. No nausea. Some pain with movement. 4 stab sites, umbilical changed at 0330. Cooperative with cares. Follow up: Monitor pain/chest pain
[2016-11-21 05:06] LABS: BASOPHIL % 0.1 %; HEMATOCRIT 32.1 % (33.0-46.0); HEMOGLOBIN 9.8 g/dL (11.0-15.0); IMMATURE GRANULOCYTE % 0.5 %; MCH 25.5 pg (27.0-34.0); MCHC 30.5 gm/dL (32.0-36.5); MCV 83.4 fl (83.0-98.0); MONOCYTE # 0.4 K/uL (0.0-1.0); MONOCYTE % 4.6 %; MPV 9.9 fl (9.4-12.4); NEUTROPHIL % 82.8 %; NRBC % 0 /100WBC (0-0.00); PLATELET COUNT 336 K/uL (150-450); RBC 3.85 M/uL (3.50-5.00); RDW-CV 14.3 % (11.9-14.6); WBC 8.5 K/uL (4.0-11.0)
[2016-11-21 05:19] LABS: ALBUMIN 2.8 gm/dL (3.5-5.0); ALK PHOS 119 IU/L (33-138); ALT 114 IU/L (12-78); ANION GAP 10.2 (10.0-19.0); AST 90 IU/L (10-40); BLOOD UREA NITROGEN 15 mg/dL (6-24); CALCIUM 7.8 mg/dL (8.5-10.5); CHLORIDE 110 mMol/L (96-110); CO2 24 mMol/L (22-32); CREATININE 0.7 mg/dL (0.5-1.1); ESTIMATED GFR (MDRD EQUATION) > 60; MAGNESIUM 2.2 mg/dL (1.3-2.6); PHOSPHORUS 3.3 mg/dL (2.5-4.9); POTASSIUM 4.2 mMol/L (3.7-5.1); SODIUM 140 mMol/L (135-145); TOTAL PROTEIN 6.4 g/dL (6.0-8.4)
[2016-11-21 05:24] LABS: TOTAL BILIRUBIN 0.7 mg/dL (0.0-1.5)
[2016-11-21 11:17] LABS: CREATININE 0.8 mg/dL (0.5-1.1); ESTIMATED GFR (MDRD EQUATION) > 60
[2016-11-21 14:22] LABS: HEMATOCRIT 31.8 % (33.0-46.0); HEMOGLOBIN 9.9 g/dL (11.0-15.0)
--- NOTE | 2016-11-21 15:43 | NUR ---
Significant Event: Pt c/o constant chest pain throughout shift. Tele on, no calls and always in sinus rhythm. VS stable. Removed IV to left antecubital, states it hurts. Saline lock'd IV. Accurate I&O, daily wt. Has received [place] and MS IV with min relief. At 1345, pt crying and states severe sharp pain to left chest. Dr. Sepulveda notified. MD to floor. VS stable. Pt anxious and tearful d/t pain. EKG done x2 per D. Alec cardiology. Ativan 0.5mg IV given, then order for Dilaudid 0.5mg IV x1 given x1. Asa 325mg po x1 given. initial VS at 1345 was 96% on room iar, 24 R, 132/61, pulse 98. 1410 VS were 114/79, 85, 95% on 3 liters. Around 1410 pt states minimal pain State H&H done, lasix 20mg IV x1 given at 1410. New order for 800mg ASA PO TID. did not feel like pt needed to be moved to PCU at this time. 1 assist to br. Passing flatus, regular diet ordered. Will monitor pt closely. 4 stab sites to abd intact with small amt of old blood to 1 site. Follow up:
--- NOTE | 2016-11-22 04:50 | NUR ---
Significant Event:pt is a/o x3. pt is ind, need to encourage her to walk. pt has iv to l hand after accidentally pulling the one out of her right fa. stab sites to mary have small amounts of old drainage. pt given norco 2 tabs @ 2100, pt rested well rest of the shift with minimal discomfort. no c/o chest pain. vss. tele no calls. intermittent iv abx-zosyn will be running @ shift change. Follow up:monitor chest pain.
[2016-11-22 05:48] LABS: ANION GAP 10.9 (10.0-19.0); BLOOD UREA NITROGEN 21 mg/dL (6-24); CALCIUM 7.8 mg/dL (8.5-10.5); CHLORIDE 109 mMol/L (96-110); CO2 26 mMol/L (22-32); CREATININE 0.9 mg/dL (0.5-1.1); ESTIMATED GFR (MDRD EQUATION) > 60; POTASSIUM 3.9 mMol/L (3.7-5.1); SODIUM 142 mMol/L (135-145)
--- NOTE | 2016-11-22 16:34 | NUR ---
Significant Event: PT AO. VSS ON RA, AFEBRILE. TELEMETRY ON WITH NO CALLS. IV TO L HAND SALINE LOCKED. AMBULATES IN HALLS AND ROOM INDEPENDENTLY. THIS AM C/O CHEST/EPIGASTRIC PAIN THIS AM. PRN JEREMY GAVE, AMBULATED PT- [place] FROM CARDIOLOGY ON FLOOR AND INFORMED. PT VITALS STABLE. XRAY SHOWED LOTS OF GAS/STOOL IN BOWEL. ENCOURAGED PT TO AMBULATE LOTS. ORDERED A SUPPOSITORY, BUT PT REFUSED TO TAKE IT, STATING SHE ALREADY HAD 2 LOOSE STOOLS. PT IS STRICT I/O, DAILY WT. ON HAZARDOUS DRUGS- COLCHICINE. LAP SITES TO ABDOMEN X4, SOME OLD DRAINAGE ON DRESINGS. Follow up: CONTINUE TO MONITOR, AMBULATE
--- NOTE | 2016-11-23 04:11 | NUR ---
Significant Event: Pt A&O x 3. VSS on RA. SBP in 90s-100s. Telemetry on with no calls. IV to left hand for IV Zosyn. Ambulates independently, walked in halls x 1 during shift. Had one complaint of chest pain around 2100, pain improved without medication. Pt had 2 loose stools during shift, one observed. Strict I/O, daily weight. Lap sites to abdomen x 4, shadow drainage on some dressings. NPO after midnight for AM ECHO. Follow up: Continue to monitor. Possible D/C if cardiology checks out. Ambulate.
[2016-11-23 13:34] LABS: BASOPHIL % 0.6 %; EOSINOPHIL # 0.1 K/uL (0.0-0.5); EOSINOPHIL % 1.7 %; HEMATOCRIT 31.1 % (33.0-46.0); HEMOGLOBIN 9.5 g/dL (11.0-15.0); IMMATURE GRANULOCYTE % 0.3 %; LYMPHOCYTE # 1.8 K/uL (0.8-4.0); LYMPHOCYTE % 28.6 %; MCH 25.3 pg (27.0-34.0); MCHC 30.5 gm/dL (32.0-36.5); MCV 82.7 fl (83.0-98.0); MONOCYTE # 0.5 K/uL (0.0-1.0); MONOCYTE % 7.7 %; MPV 9.5 fl (9.4-12.4); NEUTROPHIL # (ANC) 3.9 K/uL (1.8-7.8); NEUTROPHIL % 61.1 %; NRBC % 0 /100WBC (0-0.00); PLATELET COUNT 371 K/uL (150-450); RBC 3.76 M/uL (3.50-5.00); RDW-CV 14.3 % (11.9-14.6); WBC 6.4 K/uL (4.0-11.0)
[2016-11-23 13:53] LABS: ALT 115 IU/L (12-78); AST 47 IU/L (10-40)
[2016-11-23] MEDS ORDERED: ASPIRIN325 MG PO (16:55)
[2016-11-23] MEDS ORDERED: COLCHICINE0.6 MG PO (16:58)
[2016-11-23] MEDS ORDERED: NICOTINE PATCH1 EAC1 PO (17:00)
[2016-11-23] MEDS ORDERED: OXYCODONE HCL5 MG PO (17:02)
[2016-11-23] MEDS ORDERED: FEOSOL325 MG PO (17:07)
--- NOTE | 2016-11-23 17:16 | NUR ---
D: Orders received for the patient to be discharged to home today. I: Dismissal instructions were prepared and reviewed with the patient virtually. The following information was discussed including Krames teaching sheets: Understanding pericardial effusion, pericarditis, Lap stephanie discharge instructions, Aspirin, Colchicine, Nicotine patch, Oxycodone, Ferrous Sulfate and Preventing DVT. Reviewed all new appointments for follow up and all new medications. R: The patient verbalized understanding of the dismissal education at the time of teaching with no further questions. P: The above information was shared with the primary nurse, charge nurse and the nurses aide that the dismissal education was completed. The patient is ready for discharge to the front door via wheel chair by nursing staff when ride here.
--- NOTE | 2016-11-23 17:50 | NUR ---
Discharge instructions given to patient by Emma Patino RN Virtual Nurse. Patient dismissed per wheelchair to the front lobby where a family member was waiting to take her home.
[2017-04-27] MEDS ORDERED: DELTASONE5 MG PO (21:31)
[2017-04-27] MEDS ORDERED: COLCHICINE0.6 MG PO (21:32)
[2017-04-27] MEDS ORDERED: PROZAC10 MG (21:33)
[2017-04-28] MEDS ORDERED: MOTRIN800 MG PO (11:58)
== END 2016-11-23 17:35 | disposition disaster alternative care site (69) | DRG 418 ==
LOC: GMED 15:01 → GMSU 18:14
PROVIDERS: Family Medicine; Internal Medicine; Nurse Practitioner; Physician Assistant Medical; ADMIT Internal Medicine
PROC: 0FT44ZZ Resection of Gallbladder, Percutaneous Endoscopic Approach (ICD-10-PCS; principal; 2016-11-19)
DX: K80.00 Calculus of gallbladder with acute cholecystitis without obstruction (principal); J90 Pleural effusion, not elsewhere classified; I31.4 Cardiac tamponade; R18.8 Other ascites; I31.9 Disease of pericardium, unspecified; J98.11 Atelectasis; D50.9 Iron deficiency anemia, unspecified; R07.89 Other chest pain; E66.9 Obesity, unspecified; K59.00 Constipation, unspecified; B97.89 Other viral agents as the cause of diseases classified elsewhere; Z68.38 Body mass index [BMI] 38.0-38.9, adult; Z72.0 Tobacco use
CPT/HCPCS: C9113; J1100; J1170; J1885; J1940; J2001; J2060; J2270; J2405; J2543; J3010; J7030; J7040; J7050; J7120; Q9967

== ENCOUNTER 2016-11-26 14:00 | Inpatient (IN) | payer SELFPAY ==
[~2016-11-26] VITALS: Ht 154.9 cm; Wt 102.7 kg
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
--- NOTE | ~2016-11-26 | ECHO ---
Transthoracic Echocardiography Report (TTE) Demographics Patient Name RIRI ESCOTO Date of Study 11/26/2016 Patient Number [id number] Visit Number [id number] Date of 1990 Room Number G6324 Gender Female Number Age 26 year(s) Referring Derick Luque MD Plane Tender Itzel Randall [facility], Physician RVT Physician Interpreting Crystal Palumbo Flatwork Supervisor Physician A MD Supervising Ordering Crystal Palumbo MD/MLP Physician A MD Nurse Stress Supervisor Tellers Conclusions Summary Large global pericardial effusion. There is echocardiographic evidence of cardiac tamponade. Procedure Type of Study TTE procedure:Echo Limited w/o Contrast. Procedure Date Date: 11/26/2016 Start: 03:59 PM Study Location: Inpatient Portable Technical Quality: Excellent Indications:Pericardial effusion. Appropriate Use Criteria: 9 Patient Status: STAT Rhythm: Sinus tachycardia HR: 100 bpm Allergies - No known allergies. M-Mode/2D Measurements Post Pericard Effusion: 1.7 cm Findings Pericardial Effusion Large global pericardial effusion. There is echocardiographic evidence of cardiac tamponade. Signature dtt: Jer Rojas dtd: 11/26/16 1559 Physician Self Edit
--- NOTE | ~2016-11-26 | ECHO ---
Transthoracic Echocardiography Report (TTE) Demographics Patient Name RIRI ESCOTO Date of Study 11/28/2016 Patient Number [id number] Visit Number [id number] Date of 1990 Room Number G6324 Gender Female Number Age 26 year(s) Referring Crystal Palumbo Acute Care Occupational Therapist Physician Rebecca Johnson MD RT,RVT,RDCS Daniel Lazar Physician Interpreting [facility] Sleeve Separator Physician Deepali Fernandez MD Supervising Ordering Crystal FALCON/MLP Physician Deepali Fernandez MD Nurse Stress Twister In Conclusions Summary Limited echo for pericardial effusion. The estimated left ventricular ejection fraction is 60%. Small global pericardial effusion. There is no echocardiographic evidence of cardiac tamponade. Procedure Type of Study TTE procedure:Echo Limited w/o Contrast. Procedure Date Date: 11/28/2016 Start: 07:29 AM Study Location: Inpatient Portable Technical Quality: Adequate visualization Indications:Pericardial effusion and evaluate for pericardial effusion. Appropriate Use Criteria: 9 Patient Status: Routine HR: 82 bpm BP: 110/56 mmHg Allergies - No known allergies. Signature dtt: Jer Rojas dtd: 11/28/16 0729 Physician Self Edit
--- NOTE | ~2016-11-26 | CATH ---
Cardiac Diagnostic Report Demographics Patient Name TIGIST Montanez Gender Female Date of 1990 Age 26 year(s) Patient Number [id number] Date of Study 11/26/2016 Visit Number [id number] Room Number G6[address] [place] [id number] Ht 154.94 cm Wt 78.47 kg Referring Efstratiou Primary Physician Physician Deepali Fernandez MD Performing Efstratiou Secondary Physician Physician Deepali Fernandez MD Diagnostic Efstratiou Assisting Physician Physician Deepali Fernandez MD Interventional Efstratiou Physician Milieu Technician Physician Deepali Fernandez MD Findings and Conclusions Diagnostic Findings and Conclusion Patient with large pericardial effusion and tamponade by Echo and eboni pulsus paradoxus 5 fr pigtail catheter inserted in the pericardial cavity and 760 cc serosanguinous fluid aspirated. Repeat limited Echo showed elimination of the effusion. Appropriate studies were sent. Diagnostic Recommendations continued medical therapy and monitoring Procedure Description The patient was brought to the diagnostic cardiac catheterization-EP laboratory in the fasting, non-sedated state. Informed consent was obtained in the written and verbal form after the risks and benefits were explained. The patient had no further questions and agreed to proceed. The planned puncture-incision site(s) were shaved and prepped with Chloroprep and draped in the usual sterile manner. Conscious sedation and pain control medications were delivered by a registered nurse under physician guidance. Surface ECG rhythm, blood pressure measurement, and pulse oximetry were monitored throughout the procedure. Diagnostic Cath Status: Urgent Procedure Procedure Type Diagnostic procedure:Misc:, Periocardiocentesis Miscellaneous The procedure was explained in detail to the patient. Risks, complications and alternative treatments were reviewed. Written consent was obtained. Medications Reviewed with Patient prior to Procedure. Procedure Data Procedure Date Date: 11/26/2016Start: 04:32 PMEnd: 05:04 PM Procedure Medications Order and Administration + + + + + !Time !Medication !Dosage !Route ! + + + + + !11/26/2016 04:35 PM !Fentanyl !50 mcg !I.V. ! + + + + + !11/26/2016 04:36 PM !0.9% NaCl !20 ml/hr !I.V. drip ! + + + + + !11/26/2016 04:39 PM !Fentanyl !50 mcg !I.V. ! + + + + + Devices Used - A5 Fr. BS Angled Pigtail Diag. Catheter. Contrast Material - Isovue 3700 ml Fluoroscopy Time: Diagnostic: 3:18 minutes. Total: 3:18 minutes. Fluoroscopy Dose: Diagnostic: 169 mGy. Total: 169 mGy. Medical History Allergies - No known allergies. Risk Factors The patient risk factors include:obesity and Current/Recent(w/in 1 year) tobacco use. Admission Data Admission Date: 11/26/2016 Admission Time: 02:31 PM Admit Source: Transfer acute care facility Insurance Payors: None. Snapshots Hemodynamics Condition: Rest O2 Consumption: Estimated: 209.32Heart Rate: 93 bpm Shunts Oxygen Values O2 Consumption 209.32 Signatures dtt: Jer Rojas dtd: 11/26/16 1632 Physician Self Edit
--- NOTE | ~2016-11-26 | DS ---
PATIENT'S NAME: RIRI ESCOTO [facility] AGE: 26 Y [address] ROOM: [address] [place], [place] [address] LOCATION: [facility]PCU ADMIT DATE: 11/26/2016 Discharge Summary DISCHARGE DATE: 11/29/2016 FAMILY PHYSICIAN: Reji Shane MD ATTENDING PHYSICIAN: Ene Sepulveda ATTENDING PHYSICIAN ON THE DAY OF DISCHARGE: Dr. Boss. CONSULTING PHYSICIAN: Dr. Rojas. DISCHARGE DIAGNOSES: 1. Pericardial effusion, etiology unknown. 2. Status post pericardiocentesis for tamponade. 3. Chest pain, secondary to pericardial effusion. 4. Obesity. 5. Iron deficiency anemia. 6. Tobaccoism. 7. Status post laparoscopic cholecystectomy. 8. History of ascites with pleural effusions. DISCHARGE MEDICATIONS: 1. Colchicine 0.6 mg p.o. twice daily indication pericarditis. 2. Ferrous sulfate 325 mg p.o. daily indication iron-deficiency anemia. 3. Ibuprofen 800 mg p.o. t.i.d. indication pericarditis and chest pain. 4. Nicotine patch 21 mg transdermally daily indication nicotine dependence. 5. Serafina 5/325 1 or 2 tablets every 4 hours p.r.n. pain. PRINCIPAL PROCEDURES: The patient did undergo a pericardiocentesis by Dr. Bravo on 12/21/2016. PERTINENT RADIOLOGIC X-RAYS: Cultures from the pericardial fluid remained negative on the day of discharge. Blood cultures obtained on 11/27/2016 remain negative on the day of discharge and YAN obtained on 11/27/2016 is still pending at the time of discharge. Quantitative RF was less than 10. Path report of the pericardial fluid showed vddcm-fh-[id number] inflammation that was negative for malignant cells. Fungal culture on that fluid was also negative. Glucose in the pericardial fluid was 53 mg/dL. Protein was 5.0 g/dL. LDH elevated at 1142. Hematocrit on the pericardial fluid was 2%. Cell count showed 24,000 rbcs, 36,320 wbcs. The fluid was described as pink with 3+ turbidity. Differential showed 16 neutrophils, 78 lymphocytes, and 6 monocytes. Echocardiogram: The patient had a large pericardial effusion and tamponade by echo and eboni pulsus paradoxus on 11/26/2016. Echocardiogram was repeated, which was limited echos done later on 11/27/2016 and then on 11/28/2016 and PATIENT'S NAME: RIRI ESCOTO [facility] AGE: 26 Y [address] ROOM: [address] [place], [place] [address] LOCATION: GPCU ADMIT DATE: 11/26/2016 Discharge Summary DISCHARGE DATE: 11/29/2016 FAMILY PHYSICIAN: Reji Shane MD ATTENDING PHYSICIAN: Ene Sepulveda 11/29/2016, which did show continued small pericardial effusion, but no evidence of tamponade. HOSPITAL COURSE: Please refer to the admitting H and P dictated by Dr. Ene Sepulveda along with the Cardiology consult dictated by Dr. Luis A Kumar APRN for Dr. Rojsa. The patient was admitted, echocardiogram was obtained, and the patient was taken to the oil field laborer for the pericardiocentesis. The patient seemed to tolerated this well. She had improved shortness of breath and chest pain. The aforementioned studies were obtained on the fluid. The patient was placed on ibuprofen 800 mg p.o. t.i.d. at that point. The chest pain continued to be slightly improved along with echocardiogram. It was felt to keep the catheter placed on the 24 hours on 11/28/2016. Again, the limited echo was repeated on the morning of 11/29/2016 and felt to be stable and it was felt the patient was okay to discharge from Cardiology perspective. The patient at that point was only taking an occasional Serafina to help with her substernal chest pain and her dyspnea was markedly improved. The patient was discharged home on 11/29/2016. She is to follow up with Dr. Shane who will be establishing as her primary care provider. We will arrange for this in 1 week (the patient had had an appointment for 11/28/2016, but obviously was hospitalized and was able to attend this appointment). We will also see that she sees Dr. Rojas in followup for Cardiology perspective. We will make arrangements for this in 1 week. We will send her home with a 1 week supply of the colchicine and encouraged her to continue on the Motrin 800 mg p.o. t.i.d. until she follows up with Dr. Rojas at that point. They can discuss her case and extent of necessity of these 2 medications. The patient voiced understanding. Discharge of this patient took less than 35 minutes. I would like to thank Dr. Rojas for assisting in care of this patient. NUBIA CARO PA-C FOR MD HALIMA BERMAN/lalo /[id number] CC: Jer Rojas MD PATIENT'S NAME: RIRI ESCOTO [facility] AGE: 26 Y [address] ROOM: [place] [address] [facility] AD[facility] DATE: 11/26/2016 Discharge Summary DISCHARGE DATE: 11/29/2016 FAMILY PHYSICIAN: Reji Shane MD ATTENDING PHYSICIAN: Ene Sepulveda MD d: 11/30/16 0046 t: 12/11/16 1647, DISCHARGE SUMMARY
--- NOTE | ~2016-11-26 | CON ---
PATIENT'S NAME: RIRI ESCOTO [facility] AGE: 26 Y [address] ROOM: [place] [address] LOCATION: GPCU ADMIT DATE: 11/26/2016 Consultation DISCHARGE DATE: FAMILY PHYSICIAN: PHYSICIAN, NO ATTENDING PHYSICIAN: CRISTIANE MORGAN REFERRING PHYSICIAN: Jer Rojas MD REASON FOR CARDIOLOGY CONSULT: Pericardial tamponade. HISTORY OF PRESENT ILLNESS: This is a 26-year-old female who was recently in [facility] for acute cholecystitis and is status post a laparoscopic cholecystectomy. During her preoperative workup, she was found to have pericardial effusion with no signs of tamponade and plans were made to watch it conservatively. She was discharged to home and continued to have shortness of breath and sharp chest pain. She was brought back to [facility] for further evaluation. Her limited echocardiogram signs of tamponade and a large pericardial effusion. She had classic pulsus paradoxus on physical examination with disappearance of the radial pulse with shallow inspirations. Plan was made to proceed with pericardiocentesis by Dr. Rojas and she was taken to the catheterization suite to perform that procedure. PAST MEDICAL HISTORY: Unchanged from my dictation on 11/20/2016. PAST SURGICAL HISTORY: Unchanged from my dictation on 11/20/2016. FAMILY HISTORY: Unchanged from my dictation on 11/20/2016. SOCIAL HISTORY: Unchanged from my dictation on 11/20/2016. CURRENT MEDICATIONS: 1. Aspirin 800 mg p.o. 3 times daily. 2. Colchicine 0.6 mg p.o. twice daily. 3. Ferrous sulfate 325 mg p.o. daily. 4. Motrin 800 p.o. 3 times daily. 5. Protonix 20 mg p.o. daily. 6. NicoDerm 21 mg transdermally daily. MEDICATION ALLERGIES: No known medication allergies. REVIEW OF SYSTEMS: PATIENT'S NAME: RIRI ESCOTO [facility] AGE: 26 Y [address] ROOM: [place] [address] LOCATION: GPCU ADMIT DATE: 11/26/2016 Consultation DISCHARGE DATE: FAMILY PHYSICIAN: PHYSICIAN, NO ATTENDING PHYSICIAN: CRISTIANE MORGAN Pertinent positive review of systems listed in the HPI. She did also continue to have complaints of abdominal swelling and pain. She also complained of dyspnea and orthopnea. There was no nausea, vomiting, or diarrhea and no presyncope or syncope. All other review of systems evaluated and negative. PHYSICAL EXAMINATION: VITAL SIGNS: Temperature 98.1, pulse 97, respirations 16, blood pressure 117/71, and O2 saturation 92% on room air. The patient weighs 105.5 kg. SKIN: Normal for race and pink and dry. EYES: Sclerae clear. No xanthelasmas. ENT: Oral mucosa is pink and moist. No jugular venous distention or carotid bruits. CHEST: Respirations are even and unlabored. Lungs are clear to auscultation. HEART: Regular rate and rhythm. Normal S1, S2. No murmurs, rubs, or gallops. ABDOMEN: Soft and nontender. MUSCULOSKELETAL: Gait is normal. EXTREMITIES: Peripheral pulses are palpable. No clubbing or cyanosis. Does have mild lower extremity edema present. PSYCH: Alert and oriented. Mood and affect are appropriate. IMPRESSION AND PLAN: Per Dr. Rojas: 1. Currently status post pericardiocentesis for tamponade. The etiology of this pericardial effusion is currently unknown. She did have lymphocytic fluid noted. 2. Anemia. 3. Recent cholecystectomy. Her repeat echocardiogram today shows a small effusion on her echo. If it continues to increase, may need to replace her pericardial drain catheter. We will check a proBNP as well as an YAN and a rheumatoid factor today and repeat another echocardiogram in the a.m. We will continue to monitor, evaluate, and treat as appropriate. Thank you for this consult. Thank you for allowing [facility] to interact in the care of this patient. VAL BARROS APRN FOR MD SUPA MENDES/lalo PATIENT'S NAME: RIRI ESCOTO [facility] AGE: 26 Y [address] ROOM: [place] [address] LOCATION: [facility] ADMIT DATE: 11/26/2016 Consultation DISCHARGE DATE: FAMILY PHYSICIAN: FELICIANO OLIVEIRA ATTENDING PHYSICIAN: CRISTIANE MORGAN /[id number] d: 11/27/162012 t: 12/03/16 113, CONSULTATION REPORT
--- NOTE | ~2016-11-26 | ECHO ---
Transthoracic Echocardiography Report (TTE) Demographics Patient Name RIRI ESCOTO Date of Study 11/27/2016 Patient Number [id number] Visit Number [id number] Date of 1990 Room Number [address]6324 Gender Female Number Age 26 year(s) Referring Crystal Palumbo Senior Game Advisor Ar Luque MD Physician Interpreting [facility] Windows Application Administrator Physician Deepali Fernandez MD Supervising Ordering Crystal FALCON/MLP Physician Deepali Fernandez MD Nurse Stress Mold Sprayer Conclusions Contractility Score Summary Normal Left Ventricular contractility was noted. Summary Limited echo for pericardial effusion. The estimated left ventricular ejection fraction is 55-60%. Small global pericardial effusion. There is no echocardiographic evidence of cardiac tamponade. Procedure Type of Study TTE procedure:Echo Limited w/o Contrast. Procedure Date Date: 11/27/2016 Start: 07:45 AM Study Location: Inpatient Portable Technical Quality: Good visualization Indications:Pericardial effusion. Appropriate Use Criteria: 9 Patient Status: Routine HR: 97 bpm BP: 125/73 mmHg Allergies - No known allergies. M-Mode/2D Measurements EF Estimated: 60 % Findings Pericardial Effusion Small global pericardial effusion. There is no echocardiographic evidence of cardiac tamponade. Contractility Score LV regional wall motion:(0-Non visualized 1-Normal 2-Hypokinesis 3-Akinesis 4-Dyskinesis 5-Aneurysm) Signature dtt: Jer Rojas dtd: 11/27/16 0745 Physician Self Edit
--- NOTE | ~2016-11-26 | ECHO ---
Transthoracic Echocardiography Report (TTE) Demographics Patient Name RIRI ESCOTO Date of Study 11/29/2016 Patient Number [id number] Visit Number [id number] Date of 1990 Room Number G6324 Gender Female Number Age 26 year(s) Referring Crystal Palumbo Caption Writer Delfino Gayle RVT, Physician Rebecca FALCON [facility] Daniel Lazar Physician Interpreting Crystal Dope Sprayer Physician Deepali Fernandez MD Supervising Ordering Crystal FALCON/MLP Physician Deepali Fernandez MD Nurse Stress Publisher Assistant Conclusions Contractility Score Summary Normal Left Ventricular contractility was noted. Summary Limited echo to assess for pericardial effusion. The estimated left ventricular ejection fraction is 60%. Small global pericardial effusion. There is no echocardiographic evidence of cardiac tamponade. Procedure Type of Study TTE procedure:2D Echocardiogram. Procedure Date Date: 11/29/2016 Start: 07:14 AM Study Location: Inpatient Portable Technical Quality: Adequate visualization Indications:Pericardial effusion. Appropriate Use Criteria: 9 Patient Status: Routine HR: 75 bpm BP: 102/57 mmHg Allergies - No known allergies. Findings Right Atrium The right atrium is mildly dilated. Pericardial Effusion Small global pericardial effusion. Contractility Score LV regional wall motion:(0-Non visualized 1-Normal 2-Hypokinesis 3-Akinesis 4-Dyskinesis 5-Aneurysm) Signature dtt: Jer Rojas dtd: 11/29/16 0714 Physician Self Edit
[~2016-11-26 14:00] MED LIST: ASPIRIN325 MG PO; COLCHICINE0.6 MG PO; FEOSOL325 MG PO; NICOTINE PATCH1 EAC1 PO; OXYCODONE HCL5 MG PO
--- NOTE | 2016-11-26 16:22 | NUR ---
Pt admit for pericardial effusion. To laboratory immunologist at 1622. Dismissed from hospital 11/21 from gallbladder removal and echo was noted that she had effusion. Increasingly getting worse. Stab sites intact w/ steristrips and bruising noted to abd. Ascites to abd, cough noted. Denies pain. IV in right forearm.
[2016-11-26 16:40] LABS: BILIRUBIN URINE NEGATIVE (NEGATIVE); BLOOD URINE 10 /UL (NEGATIVE); COLOR URINE YELLOW (YELLOW); GLUCOSE URINE NEGATIVE (NEGATIVE); KETONE URINE NEGATIVE (NEGATIVE); LEUKOCYTES URINE 500 /UL (NEGATIVE); NITRITE URINE NEGATIVE (NEGATIVE); PROTEIN URINE NEGATIVE (NEGATIVE); TURBIDITY URINE CLEAR (CLEAR); UROBILINOGEN URINE NORMAL (NORMAL)
[2016-11-26 17:14] LABS: EPITHELIAL URINE NEGATIVE #/HPF (NEGATIVE); RBC URINE 0-2 #/HPF (NEGATIVE)
[2016-11-26 17:15] LABS: BACTERIA URINE MANY (NEGATIVE); MUCUS URINE 2+ (NEGATIVE); YEAST URINE FEW (NEGATIVE)
[2016-11-26 17:53] LABS: BASOPHIL % 0.3 %; EOSINOPHIL # 0.1 K/uL (0.0-0.5); EOSINOPHIL % 1.6 %; HEMOGLOBIN 9.7 g/dL (11.0-15.0); IMMATURE GRANULOCYTE # 0.1 K/uL (0.0-0.3); IMMATURE GRANULOCYTE % 0.7 %; LYMPHOCYTE # 1.8 K/uL (0.8-4.0); LYMPHOCYTE % 20.5 %; MCH 25.5 pg (27.0-34.0); MCV 82.2 fl (83.0-98.0); MONOCYTE # 0.7 K/uL (0.0-1.0); MONOCYTE % 7.3 %; MPV 9.7 fl (9.4-12.4); NEUTROPHIL # (ANC) 6.2 K/uL (1.8-7.8); NEUTROPHIL % 69.6 %; NRBC % 0 /100WBC (0-0.00); PLATELET COUNT 442 K/uL (150-450); RBC 3.81 M/uL (3.50-5.00); RDW-CV 14.2 % (11.9-14.6); WBC 8.9 K/uL (4.0-11.0)
[2016-11-26 17:54] LABS: HEMATOCRIT 31.3 % (33.0-46.0)
[2016-11-26 17:58] LABS: PROTIME 10.6 SECONDS (9.6-11.1)
[2016-11-26 18:08] LABS: ALBUMIN 2.9 gm/dL (3.5-5.0); ALK PHOS 108 IU/L (33-138); ALT 68 IU/L (12-78); AST 25 IU/L (10-40); BLOOD UREA NITROGEN 14 mg/dL (6-24); CHLORIDE 105 mMol/L (96-110); CO2 29 mMol/L (22-32); CREATININE 0.7 mg/dL (0.5-1.1); ESTIMATED GFR (MDRD EQUATION) > 60; MAGNESIUM 1.8 mg/dL (1.3-2.6); SODIUM 139 mMol/L (135-145); TOTAL PROTEIN 6.5 g/dL (6.0-8.4)
[2016-11-26 18:10] LABS: TOTAL BILIRUBIN 0.3 mg/dL (0.0-1.5)
[2016-11-27 04:19] LABS: BASOPHIL % 0.5 %; EOSINOPHIL # 0.2 K/uL (0.0-0.5); EOSINOPHIL % 2.5 %; HEMATOCRIT 32.7 % (33.0-46.0); HEMOGLOBIN 10.1 g/dL (11.0-15.0); IMMATURE GRANULOCYTE # 0.1 K/uL (0.0-0.3); IMMATURE GRANULOCYTE % 0.6 %; LYMPHOCYTE # 1.9 K/uL (0.8-4.0); LYMPHOCYTE % 23.6 %; MCH 25.4 pg (27.0-34.0); MCHC 30.9 gm/dL (32.0-36.5); MCV 82.2 fl (83.0-98.0); MONOCYTE # 0.6 K/uL (0.0-1.0); MPV 9.5 fl (9.4-12.4); NEUTROPHIL # (ANC) 5.2 K/uL (1.8-7.8); NEUTROPHIL % 64.8 %; NRBC % 0 /100WBC (0-0.00); PLATELET COUNT 466 K/uL (150-450); RBC 3.98 M/uL (3.50-5.00); RDW-CV 14.1 % (11.9-14.6)
[2016-11-27 04:41] LABS: ANION GAP 10.2 (10.0-19.0); BLOOD UREA NITROGEN 13 mg/dL (6-24); CALCIUM 8.1 mg/dL (8.5-10.5); CHLORIDE 105 mMol/L (96-110); CO2 30 mMol/L (22-32); CREATININE 0.8 mg/dL (0.5-1.1); ESTIMATED GFR (MDRD EQUATION) > 60; POTASSIUM 4.2 mMol/L (3.7-5.1); SODIUM 141 mMol/L (135-145)
--- NOTE | 2016-11-27 05:11 | NUR ---
Significant Event: A/o X3. Afebrile. c/o of chest/back pain. Gave norco, and roxicodone. notified Dr. Bravo about pain, started Motrin BID and gave toradol x1 and protonix. VSS on RA. SBP 110s, HRs 90-110s. 125ml out of pericardial drain, dark bloody drainage. NPO since midnight for abd ultrasound. Follow up: abd ultrasound today.
--- NOTE | 2016-11-27 15:31 | NUR ---
Introduced self and role of care management to pt. She lives with her mother and her children are with her at this time. She used to work at [employer] but now is at [employer]. She does not have insurance and I did ask about medicaid on the children and she does not. She states she has not signed up at [facility]. I explained I will notify Matthew of this. I did call Saumya and she will followup. Will continue to follow.
--- NOTE | 2016-11-27 16:06 | NUR ---
Shift summary: Patient alert and oriented x 3. Ascites of abdomen. Pericardial drain in upper abdomen with 65 mL out this shift; covered with gauze and tegaderm. Echo and abdominal ultrasound this AM. Hypoactive to rare bowel sounds, patient reports passing gas at end of shift. [place] given twice this shift for pain. Follow up: Echo in AM, pending results of that Dr. Bravo may have to replace pericardial drain. Encourage ambulation.
--- NOTE | 2016-11-28 04:31 | NUR ---
Significant Event: A/O x3. Afebrile. Gave norco x1 otherwise denied pain most of night. VSS on RA. SBP 90-120s. HRs in 80-90s. Bowels hypoactive. Abd firm on rt side. Patient able to pass gas. Ambulated several times in rangel/room. 100ml out of pericardial drain. Follow up: Continue to monitor per plan of care.
--- NOTE | 2016-11-28 16:41 | NUR ---
Significan events: Patient alert and oriented x 3. Up and walking in halls. Independent in room. Patient reports gas but no BM this shift. Ascites of abdomen. Right abdomen tight and firm. Lungs clear and diminished on room air. Pain in inspiration. Pericardial drain with 10 mL out this shift. Follow up: Continue per plan of care. Pericardial drain will remain in for atleast 24 more hours, echo in am. Monitor for BM.
--- NOTE | 2016-11-29 04:29 | NUR ---
Significant Event: A/O x3. Afebrile. Denies pain. VSS on RA. hypoactive bowel sounds. Abd softer, less firm. 25ml out of pericardial drain. BM x2. Up ad araceli. Cooperative with cares. Follow up: continue to monitor per plan of care.
[2016-11-29] MEDS ORDERED: MOTRIN800 MG PO (15:15)
[2016-11-29] MEDS ORDERED: NORCO 5-325 TA1 EACH PO (15:16)
--- NOTE | 2016-11-29 17:31 | NUR ---
PATIENT DISMISSED TO HOME WITH MOTHER PER PRIVATE CAR. TRANSFERED TO CAR WITH NURSE AID, MINIMAL ASSIST. REVIEWED DISMISSAL INSTRUCTIONS WITH PATIENT, PATIENT VERBALIZED UNDERSTANDING. GAVE PATIENT INFORMATION SHEETS ABOUT NEW MEDICATIONS. DISCUSSED OPTIONS WITH NUBIA Rick APRN FOR AFFORDABLE OPTIONS FOR PATIENT'S HOME MEDICATIONS.
[2017-04-27] MEDS ORDERED: DELTASONE5 MG PO (21:31)
[2017-04-27] MEDS ORDERED: COLCHICINE0.6 MG PO (21:32)
[2017-04-27] MEDS ORDERED: PROZAC10 MG (21:33)
[2017-04-28] MEDS ORDERED: MOTRIN800 MG PO (11:58)
== END 2016-11-29 16:55 | disposition disaster alternative care site (69) | DRG 315 ==
LOC: GPCU 14:31
PROVIDERS: ADMIT Internal Medicine
PROC: 0W9D3ZX Drainage of Pericardial Cavity, Percutaneous Approach, Diagnostic (ICD-10-PCS; principal; 2016-11-26)
DX: I31.3 Pericardial effusion (noninflammatory) (principal); Z68.41 Body mass index [BMI] 40.0-44.9, adult; I31.4 Cardiac tamponade; D50.9 Iron deficiency anemia, unspecified; E66.01 Morbid (severe) obesity due to excess calories; J45.909 Unspecified asthma, uncomplicated; Z87.891 Personal history of nicotine dependence
CPT/HCPCS: C1729; J1170; J1644; J1885; J3010

== ENCOUNTER → 2016-12-15 | Outpatient (CLI) | payer SELFPAY ==
[~2016-12-15] MED LIST changes: +DELTASONE5 MG PO; +INDOCIN50 MG PO; +MOTRIN800 MG PO; +NORCO 5-325 TA1 EACH PO; +PRILOSEC20 MG PO; +PROZAC10 MG; +TYLENOL EXTRA500 MG PO
[2016-12-15 17:28] LABS: BASOPHIL # 0.1 K/uL (0.0-0.2); BASOPHIL % 0.5 %; EOSINOPHIL # 0.3 K/uL (0.0-0.5); EOSINOPHIL % 3.4 %; HEMATOCRIT 36.3 % (33.0-46.0); HEMOGLOBIN 11.1 g/dL (11.0-15.0); IMMATURE GRANULOCYTE % 0.3 %; LYMPHOCYTE # 2.2 K/uL (0.8-4.0); LYMPHOCYTE % 23.3 %; MCH 24.8 pg (27.0-34.0); MCHC 30.6 gm/dL (32.0-36.5); MONOCYTE # 0.5 K/uL (0.0-1.0); MONOCYTE % 4.7 %; MPV 10.2 fl (9.4-12.4); NEUTROPHIL # (ANC) 6.4 K/uL (1.8-7.8); NEUTROPHIL % 67.8 %; NRBC % 0 /100WBC (0-0.00); PLATELET COUNT 517 K/uL (150-450); RBC 4.48 M/uL (3.50-5.00); RDW-CV 14.5 % (11.9-14.6); WBC 9.5 K/uL (4.0-11.0)
[2016-12-15 17:36] LABS: ALBUMIN 3.3 gm/dL (3.5-5.0); ALK PHOS 102 IU/L (33-138); ALT 21 IU/L (12-78); ANION GAP 12.7 (10.0-19.0); AST 14 IU/L (10-40); BLOOD UREA NITROGEN 11 mg/dL (6-24); CALCIUM 8.6 mg/dL (8.5-10.5); CHLORIDE 106 mMol/L (96-110); CO2 24 mMol/L (22-32); CREATININE 0.7 mg/dL (0.5-1.1); ESTIMATED GFR (MDRD EQUATION) > 60; POTASSIUM 3.7 mMol/L (3.7-5.1); SODIUM 139 mMol/L (135-145); TOTAL BILIRUBIN 0.3 mg/dL (0.0-1.5); TOTAL PROTEIN 7.7 g/dL (6.0-8.4)
== END ==
LOC: LNHI 17:01
PROVIDERS: Internal Medicine Cardiovascular Disease
DX: I31.4 Cardiac tamponade (principal)

== ENCOUNTER → 2017-01-01 | Outpatient (CLI) | payer SELFPAY | END | disposition disaster alternative care site (69) | LOC: LNHI 15:36 | DX: I31.9 Disease of pericardium, unspecified (principal) ==

== ENCOUNTER → 2017-01-01 | Outpatient (CLI) | payer SELFPAY ==
--- NOTE | ~2017-01-01 | ECHO ---
Transthoracic Echocardiography Report (TTE) Demographics Patient Name RIRI ESCOTO Date of Study 01/01/2017 Patient Number [id number] Visit Number [id number] Date of 1990 Room Number Gender Female Number Age 26 year(s) Referring Crystal Palumbo Mutuel Cashier Delfino Gayle RVT, Physician Rebecca FALCON RDCS Physician Interpreting Efstrati Engraving Plate Maker Physician Deepali Fernandez MD Supervising Ordering [facility] MD/MLP Physician Deepali Fernandez MD Nurse Stress Insurance Verification Specialist Conclusions Contractility Score Summary Normal Left Ventricular contractility was noted. Summary The estimated left ventricular ejection fraction is 60%. Mild to moderate concentric left ventricular hypertrophy. Diastolic assessment reveals normal relaxation. The left atrium is mildly dilated. Dilated IVC with poor inspiratory collapse consistent with elevated RA pressure. Mild tricuspid regurgitation by color Doppler. Smalll global pericardial effusion. There is no echocardiographic evidence of cardiac tamponade. Procedure Type of Study TTE procedure:2D Echocardiogram. Procedure Date Date: 01/01/2017 Start: 04:13 PM Study Location: Echo Lab Technical Quality: Good visualization Indications:Shortness of breath and Pericardial effusion. Appropriate Use Criteria: 8 Patient Status: Routine Rhythm: NSR HR: 94 bpm Allergies - No known allergies. M-Mode/2D Measurements LV Diastolic Dimension: 4.05 cm LV Systolic Dimension: 2.69 cm LV Septum Diastolic: 1.42 cm LV PW Diastolic: 1.2 cm AO Root Dimension: 2.4 cm Cardiac Output: 4.37 l/min AV Cusp Separation: 2.1 cm RV Diastolic Dimension: 2.66 cm LA volume: 58 ml LVOT: 1.9 cm RV Base: 2.67 cm LVOT VTI: 16.4 cm RV Mid: 2.88 cm LV Stroke volume: 46.48 ml TAPSE: 1.7 cm TDI-S': 9.98 cm/s Doppler Measurements AV Peak Velocity: 1.03 m/s MV Peak E-Wave: 0.94 m/s AV Peak Gradient: 4.24 mmHg MV Peak A-Wave: 0.61 m/s AV Mean Gradient: 3 mmHg MV E/A Ratio: 1.55 LVOT Peak Velocity: 1 m/s MV P1/2t: 71 msec TR Gradient:19.36 mmHg PV Peak Velocity: 0.9 m/s Estimated RAP:15 mmHg PV Peak Gradient: 3.23 mmHg Estimated RVSP: 34 mmHg Estimated PASP: 34.36 mmHg E' Septal Velocity: 0.09 m/s A' Septal Velocity: 0.15 m/s E' Lateral Velocity: 0.1 m/s A' Lateral Velocity: 0.08 m/s Findings Left Ventricle Mild to moderate concentric left ventricular hypertrophy. Diastolic assessment reveals normal relaxation. Right Ventricle Normal right ventricle structure and function. Left Atrium The left atrium is mildly dilated. There is no evidence of patent foramen ovale or atrial septal defect by color Doppler. Right Atrium The right atrium is mildly dilated. Dilated IVC with poor inspiratory collapse consistent with elevated RA pressure. Mitral Valve Normal mitral valve structure and function. Aortic Valve Normal aortic valve structure and function. Tricuspid Valve Mild tricuspid regurgitation by color Doppler. Pulmonic Valve Normal pulmonic valve structure and function. Pericardial Effusion Small global pericardial effusion. There is no echocardiographic evidence of cardiac tamponade. Miscellaneous Visualized portions of the aortic root and ascending aorta appear normal in size. Pleural Effusion No evidence of pleural effusion. Contractility Score LV regional wall motion:(0-Non visualized 1-Normal 2-Hypokinesis 3-Akinesis 4-Dyskinesis 5-Aneurysm) Signature dtt: Jer Rojas dtd: 01/01/17 8063 Physician Self Edit
== END | disposition disaster alternative care site (69) ==
LOC: GCAR 16:04
DX: I31.3 Pericardial effusion (noninflammatory) (principal); I51.7 Cardiomegaly; I07.1 Rheumatic tricuspid insufficiency

== ENCOUNTER 2017-01-05 10:56 | Inpatient (IN) | payer SELFPAY ==
[~2017-01-05] VITALS: Ht 160 cm; Wt 97.0 kg
--- NOTE | ~2017-01-05 | CON ---
PATIENT'S NAME: RIRI ESCOTO [facility] AGE: 26 Y [address] ROOM: G6338 [place], [place] [address] LOCATION: GPCU ADMIT DATE: 01/05/2017 Consultation DISCHARGE DATE: FAMILY PHYSICIAN: PHYSICIAN, UNKNOWN ATTENDING PHYSICIAN: CAROLINE ROBIN DATE OF CONSULTATION: 01/06/2017 REFERRING PHYSICIAN: CASSY MAHONEY This is a [facility] nephrology consultation. REASON FOR CONSULTATION: Acute kidney injury. HISTORY OF PRESENT ILLNESS: This is a 26-year-old female patient with a quite complicated recent past medical history including acute pericarditis with pericardial effusion, status post pericardiocentesis about a month ago with Dr. Rojas. The patient presents from [place] as a transfer after she was admitted there for two days with nausea, vomiting, and diarrhea after being placed on indomethacin for her endocarditis. The patient subsequently developed acute renal failure after having a baseline creatinine of one and presents with a creatinine today of 2.6. The patient denies any decrease in urinary output or dysuria or frequency. She does report that she was placed on ibuprofen 800 mg p.o. t.i.d. prior to starting indomethacin. The patient does follow with Dr. Shane as an outpatient and reportedly has had a recent workup for lupus that has been negative. PAST MEDICAL HISTORY: As listed above including, 1. Pericarditis. 2. Moderate obesity. 3. Cholecystitis, status post cholecystectomy. 4. Iron deficiency anemia, on oral iron. FAMILY HISTORY: Significant for diabetes in her uncle and coronary artery disease in both of her parents. She denies any history of renal disease or dialysis. She does deny any family history of lupus. SOCIAL HISTORY: The patient does have a remote history of smoking but has since quit. She denies any alcohol or drug use. REVIEW OF SYSTEMS: GENERAL: Positive for fatigue. Denies fever or chills. EYES: No double vision, blurred vision. NOSE: No epistaxis or rhinorrhea. MOUTH: No gingival bleeding. THROAT: No sore throat or hoarseness. RESPIRATORY: Positive for shortness of breath. Denies any wheezing or hemoptysis. CARDIOVASCULAR: Positive for right-sided chest pain. Positive for history of pericarditis. GASTROINTESTINAL: Positive for nausea and vomiting after starting indomethacin therapy. Positive for dark stools. IMMUNOLOGICAL: Positive for pericarditis. HEMATOLOGICAL: Positive for black stools. PSYCHIATRIC: Denies depression or anxiety. PATIENT'S NAME: RIRI ESCOTO [facility] AGE: 26 Y [address] ROOM: G6338 [place], [place] [address] [facility] AD[facility] DATE: 01/05/2017 Consultation DISCHARGE DATE: FAMILY PHYSICIAN: PHYSICIAN, UNKNOWN ATTENDING PHYSICIAN: CAROLINE ROBIN LABORATORY DATA: WBC is 8.3, hemoglobin 10.5, hematocrit 34.1, platelets 394. Glucose 84, BUN is 14, creatinine 2.6, sodium 143, potassium 4.3, chloride is 109, CO2 is 27, calcium 8.4. Albumin is 2.6. Phosphorus is 4.8. LDH is 214. Mag is 2.0. Urinalysis is negative. PHYSICAL EXAMINATION: VITAL SIGNS: Blood pressure 108/64, pulse 63, respirations 18, temp 98.0, sats 98% on room air. GENERAL: On exam, this is a very pleasant, alert, and oriented female who appears her approximate stated age and is in no acute distress. HEENT: Her head is normocephalic and atraumatic. Eyes; pupils are equal and react briskly to light and accommodation. EOMs are intact. Nose is midline. Mouth, no gingival bleeding. Throat is without lymphadenopathy or carotid bruits. NECK: No JVD. LUNGS: Lung sounds are clear to auscultation anteriorly and posteriorly. Breaths are nonlabored. CARDIOVASCULAR: Regular rate and rhythm. Unable to appreciate any murmurs, rubs, or thrills. ABDOMEN: Obese, slightly tender over the epigastric area. Positive bowel sounds. MUSCULOSKELETAL: There is no joint tenderness or muscular pain. NEUROLOGICAL: Cranial nerves 2 through 12 are grossly intact. ASSESSMENT AND PLAN: 1. Acute kidney injury likely secondary to prerenal etiology with indomethacin use. We will check a 24-hour urine for protein and also obtain outpatient clinical records for the patient's workup for lupus. We will provide further recommendations as they are forthcoming. 2. History of pericarditis with recent pericardial effusion. Dr. Rojas is following. We will avoid all NSAIDs. 3. Nausea, vomiting, and diarrhea. Recommend starting a PPI for the patient. 4. Dark stools. This could be likely due to the patient's oral use of iron as an outpatient. We will check iron studies and provide further recommendations. This patient has been seen and assessed by Dr. Mahoney. Her care is being conducted in consultation with Dr. Mahoney as well as me. We will plan further recommendations as they are forthcoming. MAR CARTER DNP, PRE SALES ARCHITECT FOR [facility] WARD MAHONEY MD ENS/modl d: 01/08/171 t: 01/18/17 1614, CONSULTATION REPORT
--- NOTE | ~2017-01-05 | CON ---
[facility]GE[facility] 26 Y [address] ROOM: [place] [address] [facility] ADMIT DATE: 01/05/2017 Consultation DISCHARGE DATE: 01/09/2017 FAMILY PHYSICIAN: Physician, Unknown ATTENDING PHYSICIAN: Olesya German DATE OF CONSULTATION: 01/08/2017 REFERRING PHYSICIAN: CASSY LINTON INDICATION: Pleural effusion. HISTORY OF PRESENT ILLNESS: This is a 26-year-old female, admitted for TIMI, nausea, and vomiting. She has a history of acute pericarditis with pericardial effusion last month and has been on indomethacin since then. Last week, she developed nausea, vomiting, diarrhea, and was found to have a creatinine of 2.7 when her baseline was noted to be 1.1. She is transferred here from [place] and started on fluids. Overall, she reports that the chest pain and shortness of breath are much better compared to last month prior to her pericardial window; however, she still has some shortness of breath and cough, which worsens with lying down. She complains of some abdominal pain, and therefore, CT of the abdomen was performed, which revealed a moderate right-sided pleural effusion. She denies any wheezing, lightheadedness, syncope, or edema. She does report a history of asthma as a child, however, this seemed to resolve as she grew older. She is a former smoker for 7 years about one pack per week and quit last month. Workup was initiated for the etiology of her pericardial effusion, and reportedly, she has had a negative rheumatoid factor, negative YAN, and pathology on the pericardial fluid was negative. She denies any family history of autoimmune or connective tissue diseases. Her ESR was 69 at last check. She denies any excessive daytime sleepiness or fatigue. She had an echo performed, which showed a normal EF with mild to moderate LVH, RVSP was 34. PAST MEDICAL HISTORY: Includes pericarditis and moderate obesity. ALLERGIES: SEE MAR. MEDICATIONS: See MAR. FAMILY HISTORY: The patient has a family history of diabetes in her uncle and heart disease in [facility]GE: 26 Y [address] ROOM: [place] [address] LOCATION: GPCU ADMIT DATE: 01/05/2017 Consultation DISCHARGE DATE: 01/09/2017 FAMILY PHYSICIAN: Physician, Unknown ATTENDING PHYSICIAN: Olesya German her parents. SOCIAL HISTORY: She has a history of smoking for 7 years one pack per week and quit a month ago. She denies any alcohol or illicit drug use. REVIEW OF SYSTEMS: A 12-point review of systems is negative except for what is noted in the HPI. PHYSICAL EXAMINATION: VITAL SIGNS: Blood pressure 116/74, pulse 71, respirations 16, temperature 98.1. She is 93% on room air. GENERAL: This is a 26-year-old obese female, who is alert and oriented x3 and appears in no acute distress at the time of exam. HEENT: Head: Normocephalic and atraumatic. Eyes: Clear. NECK: Supple. No adenopathy. No carotid bruits or JVD. LUNGS: Diminished in the bases. HEART: Regular rate and rhythm without murmur, gallop, or rub. ABDOMEN: Soft, nontender, and nondistended. Bowel sounds x4. EXTREMITIES: No cyanosis, clubbing, or edema. DIAGNOSTIC DATA: Includes sodium 144, potassium 4, BUN 14, creatinine went from 2.2 to 1.6. WBC 8.2, hemoglobin 9.5, hematocrit 31.3, platelets 350. ASSESSMENT AND PLAN: 1. Pleural effusion, (?) etiology. We will obtain diagnostic and therapeutic thoracentesis by IR today and send fluid for studies. 2. Acute kidney injury secondary to NSAID use. 3. Recent pericarditis, status post pericardial effusion. 4. Gastritis. 5. Iron deficiency anemia. 6. Obesity. Further recommendations will be made pending results of her thoracentesis. Thank you for the consult and opportunity to participate in the patient's care. AMINA DELANEY APRN FOR [facility] DIAZ MD MRVesna/modl PATIENT'S NAME: RIRI ESCOTO [facility] AGE: 26 Y [address] ROOM: [id number] [place], [place] [address] LOCATION: [facility] ADMIT DATE: 01/05/2017 Consultation DISCHARGE DATE: 01/09/2017 FAMILY PHYSICIAN: Khoi Gonzalez ATTENDING PHYSICIAN: Olesya German /[id number] d: 01/16/172052 t: 01/31/17 0651, CONSULTATION REPORT
--- NOTE | ~2017-01-05 | HP ---
PATIENT'S NAME: TIGIST [facility] AGE: 26 Y [address] ROOM: [place] [id number] LOCATION: GPCU ADMIT DATE: 01/05/2017 History & Physical DISCHARGE DATE: FAMILY PHYSICIAN: PHYSICIAN, UNKNOWN ATTENDING PHYSICIAN: CAROLINE ROBIN DATE OF SERVICE: CHIEF COMPLAINT: TIMI, nausea, vomiting, and diarrhea. HISTORY OF PRESENT ILLNESS: This is a 26-year-old female with a recent history of acute pericarditis with pericardial effusion, status post pericardicentesis about a months ago, presents from [place] as a transfer after she was admitted there two days after she presented with nausea, vomiting, diarrhea, and acute kidney failure. The patient reports to me today that onset of her symptoms started about 5 days ago where initially nausea and bilious vomiting and then subsequently followed by diarrhea, that was described as watery with intermittent dark looking stool. The patient today still mentioned some discomfort towards her left side of her chest and some shortness of breath, but states that she has significantly better from that standpoint compared to how she felt about a month ago. The patient otherwise denies any cough, dizziness, lightheadedness, fever, or chills. Also, denies any dysuria, frequency, or urination. PAST MEDICAL HISTORY: 1. Pericarditis. 2. Moderate obesity. FAMILY HISTORY: The patient has a history of diabetes in her uncle and heart disease in her parents. SOCIAL HISTORY: The patient has remote history of smoking, but she has since quit. Denies any alcohol or drug use. REVIEW OF SYSTEMS: All systems have been reviewed and were all negative expect as described in the HPI. PHYSICAL EXAMINATION: VITAL SIGNS: Blood pressure 119/56, pulse 90, respiratory rate 20, temperature 98.3, saturating 100% on room air. PATIENT'S NAME: TIGIST [facility] AGE: 26 Y [address] ROOM: [address] [address] LOCATION: GPCU ADMIT DATE: 01/05/2017 History & Physical DISCHARGE DATE: FAMILY PHYSICIAN: PHYSICIAN, UNKNOWN ATTENDING PHYSICIAN: CAROLINE ROBIN GENERAL: Awake, alert, oriented x3, in no acute distress. HEENT: Moist mucous membranes. No conjunctival pallor or scleral icterus were noted. HEART: S1 and S2. Regular rate and rhythm. LUNGS: Clear to auscultation bilaterally. ABDOMEN: Soft, mild tenderness in mid epigastric area. Positive bowel sounds. MUSCULOSKELETAL: No joint tenderness or muscular pain noted. SKIN: Without rash or lesions. NEURO: Grossly nonfocal. ASSESSMENT AND PLAN: 1. Acute kidney injury. Creatinine at outside facility per report is 2.7 today and baseline is less than 1 according to blood work done about a month ago. This is probably the medicine induced, but will do further workup to reassess. We will also involve Nephrology as well. 2. Pericarditis with recent pericardial effusion. She is status post pericardiocentesis about a month ago with Dr. Bravo and she has been improving symptomatically with this. At this point, we will stop indomethacin and will actually try to avoid all NSAIDs. In the meantime, I am going to use alternative to manage pain. 3. Moderate obesity. Lifestyle modification choices were advised to the patient. 4. Nausea, vomiting, and diarrhea. The patient reported having dark looking stool at least once yesterday. We will check for occult blood in the stool and take it from there. 5. Deep venous thrombosis prophylaxis. We will use SCDs and ambulate the patient. MD MILTON SANCHEZ/lalo /[id number] D: [id number] T: [id number] HISTORY & PHYSICAL
--- NOTE | ~2017-01-05 | DS ---
PATIENT'S NAME: RIRI ESCOTO [facility] AGE: 26 Y [address] ROOM: [id number] [place], [place] [address] LOCATION: GPCU ADMIT DATE: 01/05/2017 Discharge Summary DISCHARGE DATE: 01/09/2017 FAMILY PHYSICIAN: Physician, Unknown ATTENDING PHYSICIAN: Olesya German FINAL DIAGNOSES: 1. Acute kidney injury secondary to nonsteroidals. 2. Recurrent pericarditis with recent pericardial effusion drainage. 3. Inflammatory pleural effusion. 4. Iron deficiency anemia. 5. Gastritis. HISTORY OF PRESENT ILLNESS: For details of admission, please see the history and physical dictated by Dr. Olesya German. Briefly, the patient had presented from [facility] where she had presented with nausea, vomiting, diarrhea, and was found to have acute renal failure. She had been on anti-inflammatories for acute pericarditis and pericardial effusion, status post pericardiocentesis about a month ago. LABORATORY DATA: On admission, sodium 143, discharge 140; potassium on admission was 4.2, discharge 3.9, BUN on admission was 14, discharge 12; and creatinine on admission was 2.8, discharge 1.2. Liver enzymes were normal. ProBNP was 569. C-reactive protein was 243. On admission, white blood cell count 8.3, 7.8 on discharge; hemoglobin on admission was 10.1, got as low as 9.5, and at discharge she was 10; and platelet count on admission was 294, discharge 364. Pericardial fluid was 1+ turbidity, she had 2451 white blood cells, 13% neutrophils, 59% lymphs. Glucose in the fluid was 100, protein 4.2, albumin 2. Ultrasound of the kidneys on admission, diffuse enlargement. CT scan of the abdomen: Small- to moderate-sized right pleural effusion, very small pericardial effusion, gallbladder was absent. HOSPITAL COURSE: The patient was transferred with a diagnosis of acute kidney failure. It was felt that this was probably some component prerenal in nature and also some component due to nonsteroidal. She was given aggressive IV hydration. Nephrology was asked to see her. Cardiology did see her as they had been following her since her pericardial effusion. A 24-hour urine was obtained for protein. The 24-hour urine volume was 7380, but they were unable to calculate the protein because it was below 6. It was felt that some of the nausea and vomiting she was having was from her renal function, but probably some gastritis. She was started on nonsteroidals. Her kidney function continued to improve. She did have a history of iron-deficiency anemia. She was given a dose of Ferrlecit IV. Because of the recurrent pleural effusion, a thoracentesis was done. Dr. Isael Roldan saw her, he felt that it was based on the studies an inflammatory effusion. The patient was feeling well enough, PATIENT'S NAME: RIRI ESCOTO [facility] AGE: 26 Y [address] ROOM: [place] [id number] LOC[facility] ADMIT DATE: 01/05/2017 Discharge Summary DISCHARGE DATE: 01/09/2017 FAMILY PHYSICIAN: Physician, Unknown ATTENDING PHYSICIAN: Olesya German it was felt that she was stable for discharge. During the hospital stay, she had had double stranded DNA checked and antibiotics-Cote antibodies which were pending. Her complement studies done from October were reviewed and were negative. An YAN with reflex screen was sent and is pending at the time of this discharge. After discussing with Dr. Mahoney, Dr. Roldan, and myself, we thought it might be l[place] to get her seen by a human development professor, and the patient did agree. Arrangements were made for her to be see Dr. Nicola Wyman in [place]. DISCHARGE INSTRUCTIONS: Follow up with Dr. Mahoney in 2 weeks. See Ms. María Elena APRN in 2 weeks with a chest x-ray prior to clinic visit. She advised not to take aspirin, Motrin, Aleve, and indomethacin. HER DISCHARGE MEDICATIONS: 1. Feosol 325 mg day. 2. Omeprazole 20 mg daily. 3. [place] 5/325 one every 4-6 hours as needed for pain. OVERALL PROGNOSIS: At discharge good. SANCHEZ AYERS MD LAW/modl /[id number] CC: MD Isael Aaron MD Brian Fay, MD d: 01/10/17125 t: 01/12/171920, DISCHARGE SUMMARY
[~2017-01-05 10:56] MED LIST changes: -DELTASONE5 MG PO; -INDOCIN50 MG PO; -PRILOSEC20 MG PO; -PROZAC10 MG; -TYLENOL EXTRA500 MG PO
[2017-01-05] MEDS ORDERED: INDOCIN50 MG PO (13:42)
[2017-01-05] MEDS ORDERED: TYLENOL EXTRA500 MG PO (13:43)
[2017-01-05 15:58] LABS: BASOPHIL % 0.5 %; EOSINOPHIL # 0.1 K/uL (0.0-0.5); EOSINOPHIL % 1.7 %; HEMATOCRIT 32.8 % (33.0-46.0); HEMOGLOBIN 10.1 g/dL (11.0-15.0); IMMATURE GRANULOCYTE % 0.3 %; LYMPHOCYTE # 1.5 K/uL (0.8-4.0); MCH 24.4 pg (27.0-34.0); MCHC 30.8 gm/dL (32.0-36.5); MCV 79.2 fl (83.0-98.0); MONOCYTE # 0.4 K/uL (0.0-1.0); MONOCYTE % 5.2 %; MPV 9.8 fl (9.4-12.4); NEUTROPHIL # (ANC) 5.7 K/uL (1.8-7.8); NEUTROPHIL % 73.3 %; NRBC % 0 /100WBC (0-0.00); RBC 4.14 M/uL (3.50-5.00); WBC 7.8 K/uL (4.0-11.0)
[2017-01-05 16:03] LABS: PLATELET COUNT 394 K/uL (150-450)
[2017-01-05 16:14] LABS: ALBUMIN 2.8 gm/dL (3.5-5.0); ANION GAP 15.2 (10.0-19.0); CALCIUM 8.3 mg/dL (8.5-10.5); CREATININE 2.8 mg/dL (0.5-1.1); MAGNESIUM 2.5 mg/dL (1.8-2.6); PHOSPHORUS 4.4 mg/dL (2.5-4.9); POTASSIUM 4.2 mMol/L (3.7-5.1)
[2017-01-06 03:23] LABS: BASOPHIL % 0.4 %; EOSINOPHIL # 0.2 K/uL (0.0-0.5); EOSINOPHIL % 2.2 %; HEMATOCRIT 34.1 % (33.0-46.0); HEMOGLOBIN 10.5 g/dL (11.0-15.0); IMMATURE GRANULOCYTE % 0.2 %; LYMPHOCYTE # 1.9 K/uL (0.8-4.0); MCH 24.2 pg (27.0-34.0); MCHC 30.8 gm/dL (32.0-36.5); MCV 78.8 fl (83.0-98.0); MONOCYTE # 0.5 K/uL (0.0-1.0); MONOCYTE % 6.2 %; NEUTROPHIL # (ANC) 5.6 K/uL (1.8-7.8); NRBC % 0 /100WBC (0-0.00); PLATELET COUNT 394 K/uL (150-450); RBC 4.33 M/uL (3.50-5.00); WBC 8.3 K/uL (4.0-11.0)
[2017-01-06 03:36] LABS: ALBUMIN 2.8 gm/dL (3.5-5.0); ANION GAP 11.3 (10.0-19.0); CALCIUM 8.4 mg/dL (8.5-10.5); CREATININE 2.6 mg/dL (0.5-1.1); MAGNESIUM 2.5 mg/dL (1.8-2.6); PHOSPHORUS 4.5 mg/dL (2.5-4.9); POTASSIUM 4.3 mMol/L (3.7-5.1)
[2017-01-06 10:30] LABS: BILIRUBIN URINE NEGATIVE (NEGATIVE); BLOOD URINE NEGATIVE /UL (NEGATIVE); COLOR URINE YELLOW (YELLOW); GLUCOSE URINE NEGATIVE (NEGATIVE); KETONE URINE NEGATIVE (NEGATIVE); LEUKOCYTES URINE NEGATIVE /UL (NEGATIVE); NITRITE URINE NEGATIVE (NEGATIVE); PROTEIN URINE NEGATIVE (NEGATIVE); TURBIDITY URINE CLEAR (CLEAR); UROBILINOGEN URINE NORMAL (NORMAL)
[2017-01-07 06:04] LABS: BASOPHIL % 0.5 %; EOSINOPHIL # 0.2 K/uL (0.0-0.5); EOSINOPHIL % 2.9 %; HEMATOCRIT 32.4 % (33.0-46.0); HEMOGLOBIN 9.9 g/dL (11.0-15.0); IMMATURE GRANULOCYTE % 0.2 %; LYMPHOCYTE # 2.1 K/uL (0.8-4.0); LYMPHOCYTE % 25.5 %; MCH 24.2 pg (27.0-34.0); MCHC 30.6 gm/dL (32.0-36.5); MCV 79.2 fl (83.0-98.0); MONOCYTE # 0.6 K/uL (0.0-1.0); MONOCYTE % 6.7 %; MPV 9.7 fl (9.4-12.4); NEUTROPHIL # (ANC) 5.3 K/uL (1.8-7.8); NEUTROPHIL % 64.2 %; NRBC % 0 /100WBC (0-0.00); PLATELET COUNT 364 K/uL (150-450); RBC 4.09 M/uL (3.50-5.00); RDW-CV 14.8 % (11.9-14.6); WBC 8.2 K/uL (4.0-11.0)
[2017-01-07 06:13] LABS: ALBUMIN 2.6 gm/dL (3.5-5.0); CALCIUM 8.1 mg/dL (8.5-10.5); CREATININE 2.2 mg/dL (0.5-1.1); PHOSPHORUS 4.8 mg/dL (2.5-4.9); POTASSIUM 4.2 mMol/L (3.7-5.1)
[2017-01-07 06:14] LABS: ANION GAP 14.2 (10.0-19.0)
[2017-01-08 05:05] LABS: BASOPHIL % 0.5 %; EOSINOPHIL # 0.2 K/uL (0.0-0.5); EOSINOPHIL % 2.8 %; HEMATOCRIT 31.3 % (33.0-46.0); HEMOGLOBIN 9.5 g/dL (11.0-15.0); IMMATURE GRANULOCYTE % 0.4 %; LYMPHOCYTE % 24.2 %; MCH 24.3 pg (27.0-34.0); MCHC 30.4 gm/dL (32.0-36.5); MCV 80.1 fl (83.0-98.0); MONOCYTE # 0.5 K/uL (0.0-1.0); MONOCYTE % 6.2 %; MPV 9.7 fl (9.4-12.4); NEUTROPHIL # (ANC) 5.4 K/uL (1.8-7.8); NEUTROPHIL % 65.9 %; NRBC % 0 /100WBC (0-0.00); PLATELET COUNT 350 K/uL (150-450); RBC 3.91 M/uL (3.50-5.00); RDW-CV 15.1 % (11.9-14.6); WBC 8.2 K/uL (4.0-11.0)
[2017-01-08 05:20] LABS: ALBUMIN 2.6 gm/dL (3.5-5.0); CALCIUM 7.8 mg/dL (8.5-10.5); CREATININE 1.6 mg/dL (0.5-1.1)
[2017-01-08 10:47] LABS: INR - (THERAPEUTIC) 0.97 (0.92-1.07); PROTIME 10.2 SECONDS (9.8-11.4)
[2017-01-09 04:44] LABS: BASOPHIL % 0.4 %; EOSINOPHIL # 0.3 K/uL (0.0-0.5); EOSINOPHIL % 3.2 %; HEMATOCRIT 32.7 % (33.0-46.0); IMMATURE GRANULOCYTE % 0.4 %; LYMPHOCYTE # 1.9 K/uL (0.8-4.0); LYMPHOCYTE % 23.7 %; MCH 24.2 pg (27.0-34.0); MCHC 30.6 gm/dL (32.0-36.5); MONOCYTE # 0.5 K/uL (0.0-1.0); MONOCYTE % 5.7 %; MPV 9.8 fl (9.4-12.4); NEUTROPHIL # (ANC) 5.2 K/uL (1.8-7.8); NEUTROPHIL % 66.6 %; NRBC % 0 /100WBC (0-0.00); PLATELET COUNT 368 K/uL (150-450); RBC 4.14 M/uL (3.50-5.00); RDW-CV 14.9 % (11.9-14.6); WBC 7.8 K/uL (4.0-11.0)
[2017-01-09 05:04] LABS: ALBUMIN 2.9 gm/dL (3.5-5.0); ANION GAP 12.9 (10.0-19.0); CALCIUM 8.5 mg/dL (8.5-10.5); CREATININE 1.2 mg/dL (0.5-1.1); MAGNESIUM 1.9 mg/dL (1.8-2.6); PHOSPHORUS 4.5 mg/dL (2.5-4.9); POTASSIUM 3.9 mMol/L (3.7-5.1)
[2017-01-09] MEDS ORDERED: PRILOSEC20 MG PO (16:19)
[2017-01-09] MEDS ORDERED: NORCO 5-325 TA1 EACH PO (16:21)
[2017-04-27] MEDS ORDERED: DELTASONE5 MG PO (21:31)
[2017-04-27] MEDS ORDERED: COLCHICINE0.6 MG PO (21:32)
[2017-04-27] MEDS ORDERED: PROZAC10 MG (21:33)
[2017-04-28] MEDS ORDERED: MOTRIN800 MG PO (11:58)
== END 2017-01-09 17:35 | disposition disaster alternative care site (69) | DRG 683 ==
LOC: GPCU 10:56
PROVIDERS: Nurse Practitioner; ADMIT Internal Medicine
DX: N17.9 Acute kidney failure, unspecified (principal); J90 Pleural effusion, not elsewhere classified; I31.9 Disease of pericardium, unspecified; I38 Endocarditis, valve unspecified; D50.9 Iron deficiency anemia, unspecified; E66.8 Other obesity; Z86.79 Personal history of other diseases of the circulatory system; K29.70 Gastritis, unspecified, without bleeding; Z68.37 Body mass index [BMI] 37.0-37.9, adult; T39.395A Adverse effect of other nonsteroidal anti-inflammatory drugs [NSAID], initial encounter
CPT/HCPCS: C9113; J2405; J2916; J7030; J7040; J7050